=== PATIENT | male | born 1945 | race Caucasian/White ===

== ENCOUNTER 2018-08-24 07:10 | Inpatient (IN) | payer OTHER ==
[~2018-08-24] VITALS: Ht 175.3 cm; Wt 52.6 kg
--- OUTSIDE RECORDS SUMMARY | ~2018-08-24 | XMS | Clinical Summary ---
Demographics + + + | Address | [address] | | | [place] [address] | + + + | Home Phone | | + + + | Preferred Language | Unknown | + + + | Marital Status | | + + + | Rastafarian Affiliation | Unknown | + + + | Race | Unknown | + + + | Ethnic Group | Unknown | + + + Author + + + | Author | [facility] | + + + | Organization | [facility] | + + + | Address | Unknown | + + + | Phone | Unavailable | + + + Support + + +---------+ + | Name | Relationship | Address | Phone | + + +---------+ + | Brandee Salazar | ECON | Unknown | | + + +---------+ + | Message,Detailed | ECON | Unknown | | + + +---------+ + Care Team Providers + +------+ + | Care Map Compiler Name | Role | Phone | + +------+ + | Melecio Murillo MD | PP | | + +------+ + Allergies + + + + + + | Active Allergy | Reactions | Severity | Noted | Comments | | | | | Date | | + + + + + + | Codeine | Nausea and Vomiting, | Medium | 07/07/19 | | | | Rash | | 17 | | + + + + + + | Morphine | Nausea and Vomiting, | Medium | 07/07/19 | | | | Rash | | 17 | | + + + + + + Current Medications + + +-------+---------+------+------+-------+ | Prescription | Sig. | Disp. | Refills | Star | End | Statu | | | | | | t | Date | s | | | | | | Date | | | + + +-------+---------+------+------+-------+ | cloNIDine | Take 0.1 mg by mouth | | | | | Activ | | (CATAPRES) 0.1 MG | once. | | | | | e | | tablet | | | | | | | + + +-------+---------+------+------+-------+ | lisinopril | Take 2.5 mg by mouth | | | | | Activ | | (ZESTRIL) 2.5 MG | daily. | | | | | e | | tablet | | | | | | | + + +-------+---------+------+------+-------+ | aspirin 325 MG | Take 325 mg by mouth | | | | | Activ | | tablet | daily with | | | | | e | | | breakfast. | | | | | | + + +-------+---------+------+------+-------+ | atorvastatin | Take 40 mg by mouth | | | | | Activ | | (LIPITOR) 40 MG | nightly. | | | | | e | | tablet | | | | | | | + + +-------+---------+------+------+-------+ | fish oil omega-3 | Take 1 g by mouth | | | | | Activ | | fatty acids 1000 MG | daily. | | | | | e | | capsule | | | | | | | + + +-------+---------+------+------+-------+ Active Problems + + + | Problem | Noted Date | + + + | Chest pain, unspecified | 07/06/2016 | + + + | COPD (chronic obstructive pulmonary disease) | 07/06/2016 | + + + | Tobacco abuse | 07/06/2016 | + + + | Essential hypertension, benign | 07/06/2016 | + + + | Hyperlipidemia | 07/06/2016 | + + + Social History + +-------+ +--------+------+ | Tobacco Use | Types | Packs/Day | Years | Date | | | | | Used | | + +-------+ +--------+------+ | Current Every Day | | 0.5 | | | | Smoker | | | | | + +-------+ +--------+------+ + + | Tobacco Cessation: Counseling Given: Yes | + + + + +---------+ + | Alcohol Use | Drinks/We | oz/Week | Comments | | | ek | | | + + +---------+ + | No | | | | + + +---------+ + + + + | Sex Assigned at | Date Recorded | | | | + + + | Not on file | | + + + Last Filed Vital Signs + + + + | Vital Sign | Reading | Time Taken | + + + + | Blood Pressure | 151/67 | 07/07/2016 7:39 AM PDT | + + + + | Pulse | 50 | 07/07/2016 7:39 AM PDT | + + + + | Temperature | 36.7 C (98 F) | 07/07/2016 7:39 AM PDT | + + + + | Respiratory Rate | 18 | 07/07/2016 7:39 AM PDT | + + + + | Oxygen Saturation | 94% | 07/07/2016 7:39 AM PDT | + + + + | Inhaled Oxygen | - | - | | Concentration | | | + + + + | Weight | 74.8 kg (165 lb) | 07/07/2016 3:33 AM PDT | + + + + | Height | 172.7 cm (5' 8") | 07/07/2016 3:33 AM PDT | + + + + | Body Mass Index | 25.09 | 07/07/2016 3:33 AM PDT | + + + + Plan of Treatment + + + + + | Health Maintenance | Due Date | Last Done | Comments | + + + + + | Vaccine: | | | | | Dtap/Tdap/Td (1 - | 6 | | | | Tdap) | | | | + + + + + | Colon Cancer | | | | | Screening | 7 | | | | (Colonoscopy) | | | | + + + + + | Vaccine: Zoster (1 | | | | | of 2) | 7 | | | + + + + + | Vaccine: | | | | | Pneumococcal 65+ | 2 | | | | Low/Medium Risk (1 | | | | | of 2 - PCV13) | | | | + + + + + | Vaccine: Influenza | | | | | (Season Ended) | 9 | | | + + + + + Results Not on filefrom Last 3 Months Insurance + +--------+ +------+ + + | Payer | Benefi | Subscriber | Type | Phone | Address | | | t Plan | ID | | | | | | / | | | | | | | Group | | | | | + +--------+ +------+ + + | MEDICARE | MEDICA | [id number] | | | [address] | | | RE | | | | [place] [address] | | | PART A | | | | | | | ONLY | | | | | + +--------+ +------+ + + | VETERANS | VETER[employer] | [id number] | | [phone] | [employer]EE [employer] [id number] | | ADMINISTRATION | [place] | | | [phone] | | | ADMINI | | | | [place] | | | [place] | | | | [phone] | | | ON | | | | | + +--------+ +------+ + + + +--------+ +--------+ + + | Guarantor Name | Accoun | Relation to | Date | Phone | Billing Address | | | t Type | Patient | of | | | | | | | | | | + +--------+ +--------+ + + | ANUJ SALAZAR | Majora | Self | [birth year] Home: | [address] | | | ns | | [phone] | [phone] | [place] [address] | | | Admini | | | [phone] | | | | strati | | | | | | | on | | | | | + +--------+ +--------+ + +
--- OUTSIDE RECORDS SUMMARY | ~2018-08-24 | XMS | Clinical Summary ---
Demographics + + + | Address | [address] | | | [place] [address] | + + + | Home Phone | | + + + | Preferred Language | Unknown | + + + | Marital Status | | + + + | Jew Affiliation | Unknown | + + + | Race | Unknown | + + + | Ethnic Group | Unknown | + + + Author + + + | Author | [facility] | + + + | Organization | [facility] | + + + | Address [...] Team Providers + +------+ + | Care Petroleum Refinery Laborer Name | Role | Phone | + [...] + + | MEDICARE | MEDICA | [id number] | | | [address] | | | RE | | | | [place] [address] | | | PART A | | | | | | | ONLY | | | | | + +--------+ +------+ + + | VETERANS | VET[place] | [id number] | | [phone] | [employer] [address] | | ADMINISTRATION | [place] | | | [phone] | [phone] | | | ADMINI | | | | [place] | | | [place] | | | | [phone] | | | ON | | | [...] | Self | [birth year] | Home: | [address] | | | ns | | 1946 | [phone] | [place] [address] | | | Admini | | | [phone] | | | | strati | | | | | | | on | | | | | + +--------+ +--------+ + +
--- NOTE | 2018-08-24 12:00 | NUR ---
SPUTUM SAMPLE SENT TO LAB AT THIS TIME. SPUTUM WAS GREEN, CHAWLA IN COLOR.
--- NOTE | 2018-08-24 12:13 | NUR ---
PT ARRIVED VIA STREACHER, TRANSFERED SELF TO BED. O2 PLACED AT 3L'S NC. [facility] LOGIC CONTROLLER ASSEMBLER BILL COMPLETING ADMIT PROCESS. PT IS COOPERATIVE WITH HOSPITAL ROUTINE AT THIS TIME.
--- NOTE | 2018-08-24 12:27 | NUR ---
IV STARTED BY VICKY ARCINIEGA
--- NOTE | 2018-08-24 13:05 | NUR ---
PATIENT IS SITTING UP IN BED EATING TURKEY SANDWICH FOR LUNCH. PATIENT DENIES SOB. PATIENT HAS INCONSITENT PAIN IN RIGHT ABDOMINAL/RIB AREA, DECLINES PAIN MEDS. PATIENT RECENTLY QUIT SMOKING 2 WEEKS AGO, DECLINES NICOTINE PATCH. PATIENT HAS CALL LIGHT WITHIN REACH.
--- NOTE | 2018-08-24 13:19 | NUR ---
CALL TO [facility] TO LET THEM KNOW PT IS READY FOR ECHO. TECH IN AN EXAM AND WILL BE IN SOON POSSIBLE.
--- NOTE | 2018-08-24 14:08 | NUR ---
PATIENT GOT UP AND WALKED WITH CANE TO BATHROOM. VOIDED 700 MLS ORANGE COLORED URINE. PATIENT WALKED AROUND ROOM AND LOOKED OUTSIDE CONVERSING WITH NURSE FOR 10 MINUTES AND THEN SAT ON EDGE OF BED. PATIENT IS LOOKING OUT THE WINDOW WITH CALL LIGHT AT SIDE.
--- NOTE | 2018-08-24 16:30 | NUR ---
DR. PATTERSON NOTIFIED ABOUT PATIENT'S NEW AFLUTTER
[2018-08-24] MEDS ORDERED: LIPITOR40 MG PO (16:50)
[2018-08-24] MEDS ORDERED: METOPROLOL TART50 MG PO (16:50)
[2018-08-24] MEDS ORDERED: ZESTRIL5 MG PO (16:51)
[2018-08-24] MEDS ORDERED: COLACE100 MG PO (17:09)
[2018-08-24] MEDS ORDERED: TRAZODONE HCL100 MG PO (17:09)
[2018-08-24] MEDS ORDERED: HYDROCODON-ACE1 EA10 PO (17:10)
--- NOTE | 2018-08-24 17:10 | NUR ---
ASSISTED PATIENT TO THE BATHROOM. PATIENT VOIDED 200 MLS OF ORANGE URINE. PATIENT WALKED BACK TO SIT ON EDGE OF BED WITH CANE. PATIENT IS TALKING WITH FAMILY AND EATING DINNER. PATIENT TOLERATED ACTIVITY WELL AND HAS CALL LIGHT WITHIN REACH.
[2018-08-24] MEDS ORDERED: MELATONIN5 M2 PO (17:11)
[2018-08-24] MEDS ORDERED: LITE COAT ASPI325 MG PO (17:11)
[2018-08-24] MEDS ORDERED: MULTI-VITAMIN1 EAC1 PO (17:12)
--- NOTE | 2018-08-24 17:18 | NUR ---
Medications reconciled using pill bottles and interview with patient's . Per , patient gets confused regarding medications
--- NOTE | 2018-08-24 18:17 | NUR ---
PATIENT IS SITTING ON EDGE OF BED TALKING WITH FAMILY IN THE ROOM. PATIENT ORDERED A GRILLED CHEESE SANDWICH AND CHOCOLATTE PUDDING BUT DID NOT EAT ANY OF IT. PATIENT WAS STILL COMPLAINING OF PAIN IN RIGHT UPPER QUADRANT. 500MG TYLENOL GIVEN. PATIENT HAS CALL LIGHT WITHIN REACH.
--- NOTE | 2018-08-24 18:27 | NUR ---
THIS DIRECTOR OF CARDIAC CATH LAB AGREES WITH ALL OF STUDENT NURSE BILL FROM [facility] CHARTING.
--- NOTE | 2018-08-24 20:00 | NUR ---
AAOX4 AND RESPONDING APPROPRIATELY. SINUS RHYTHM, PERPHERIAL PULSES PALAPBLE +2, NO EDEMA. 2L NC, MIXED LUNGS SOUNDS SEE DOCUMENTATION, R/T IN ROOM TO GIVE PATRICK'D NEB, PRODUCTIVE COUGH WITH THICK GREEN SPUTUM. ABD NON DISTENDED, TENDER TO PALPATION, BOWEL TONES ACTIVE X4, REPORTS NAUSEA, C/O 5/10 SHARP PAIN, PROVIDER TO BE NOTIFIED. VOIDING QS. SKIN C/D/I. D5LR INFUSING AT 75 MLS/HR, IV SITE FLUSHED, PATENT, WNL. EDUCATION PROVIDED ON SAFETY AND FALL PREVENTION, UPDATED PLAN OF CARE, PT VERBALIZED UNDERSTANDING AND AGREEABLE.
--- NOTE | 2018-08-24 20:16 | NUR ---
PT STATES HE TAKES TRAZODONE AND MELATONIN FOR SLEEP. REVIEWED MED REC, ORDER FOR 200 MG TRAZODONE AND 5MG MELATONIN NOTED. DISCUSSED MEDICATION WITH DR. PATTERSON, PER PROVIDER, 200 MG TRAZODONE PO HS AND 5 MG MELATONIN PO HS TO BE GIVEN.
--- NOTE | 2018-08-24 21:00 | NUR ---
DR. PATTERSON AT BEDSIDE TO ASSESS PT AND UPDATE PLAN OF CARE.
--- NOTE | 2018-08-24 21:20 | NUR ---
CALL LIGHT ANSWERED, PT SBA WITH CANE, GAIT NOTED TO BE UNSTEADY AT TIMES. SAFETY AND FALL PREVENTION REINFORCED, PT VERBALIZED UNDERSTANDING.
--- NOTE | 2018-08-24 21:30 | NUR ---
EDUCCATION PROVIDED ON NEW MEDICATIONS AND POSSIBLE SIDE EFFECTS, ALL QUESTIONS ANSWERED, PT AGREEABLE TO PLAN AT THIS TIME. WILL CONTINUE TO MONITOR.
--- NOTE | 2018-08-24 22:31 | NUR ---
CALL LIGHT ANSWERED, PT REQUESTING TO TURN LIGHTS OFF AND REST. DENIES OTHER NEEDS. CALL LIGHT WITHIN REACH.
--- NOTE | 2018-08-24 22:41 | EKG ---
[facility] [address] [facility] [place] [address] Signed Atrial flutter with variable AV block Nonspecific ST abnormality Abnormal ECG No previous ECGs available Confirmed by KERI PATTERSON MD ([id number]) on 08/24/2018 10:41:39 PM Electronically Signed By: KERI PATTERSON MD 08/24/18 2241 PATIENT NAME: JAKE ZURITA Electrocardiogram DATE OF : 47 PHYSICIAN: KERI PATTERSON MD REPORT #: [id number] REPORT IS CONFIDENTIAL AND NOT TO BE RELEASED WITHOUT AUTHORIZATION
--- NOTE | 2018-08-24 22:42 | EKG ---
[facility] [address] [facility] [place] [address] Signed Sinus rhythm with occasional premature ventricular complexes Otherwise normal ECG When compared with ECG of 24-AUG-2018 07:16, (Unconfirmed) Sinus rhythm has replaced Atrial flutter Vent. rate has decreased BY [address] no longer elevated in Inferior leads ST elevation has replaced ST depression in Anterior leads Confirmed by KERI PATTERSON MD ([id number]) on 08/24/2018 10:41:57 PM Electronically Signed By: KERI PATTERSON MD 08/24/18 2242 PATIENT NAME: JAKE ZURITA Electrocardiogram DATE OF : 47 PHYSICIAN: KERI PATTERSON MD REPORT #: [id number] REPORT IS CONFIDENTIAL AND NOT TO BE RELEASED WITHOUT AUTHORIZATION
--- NOTE | 2018-08-24 23:32 | NUR ---
PT RESTING IN BED WITH EYES CLOSED, RESPIRATIONS EVEN AND UNLABORED, NO ACUTE DISTRESS NOTED.
--- NOTE | 2018-08-25 | NUR ---
PUMP ALARM ALARMING, RN IN ROOM TO ASSESS PT. PT NOTED TO HAVE PULLED OUT IV SITE, CATH INTACT. PT DISORIENTED UPON WAKING BUT REORIENTS SELF EASILY. BUL COARSE, BLL DIMINISHED, REMAINS ON 2L NC. DENIES PAIN. NO OTHER ACUTE CHANGES. CALL LIGHT WITHIN REACH.
--- NOTE | 2018-08-25 02:22 | NUR ---
PT RESTING WITH EYES CLOSED, REPIRATIONS EVEN AND UNLABORED, NO ACUTE DISTRESS NOTED. PT NPO SINCE MIDNIGHT, DRINKS AND FOOD REMOVED FROM BEDSIDE.
--- NOTE | 2018-08-25 04:00 | NUR ---
PT DISORIENTED UPON WAKING AND PULLING AT CORDS, REORIENTED. 1 PA WITH CANE TO RESTROOM, PT GAIT UNSTEADY AND C/O DIZZINESS. PT VOIDED 600 MLS. 1 PA BACK TO BED. REINFORCED SAFETY AND FALL PREVENTION. ADVISED TO USE BSC UNTIL GAIT IMPROVES, PT AGREEABLE. BUL CLEAR, BLL COARSE, ON 2L NC, PRODUCTIVE COUGH WITH THICK GREEN TO WHITE SPUTUM. NO OTHER ACUTE CHANGES. DENIES OTHER NEEDS. CALL LIGHT WITHIN REACH. BED ALARM ON.
--- NOTE | 2018-08-25 05:46 | NUR ---
CALL LIGHT ANSWERED, PT SBA TO BSC, C/O DIZZINESS AND UNSTEADY GAIT. REINFORCED FALL PREVENTION AND CALL LIGHT USE, VERBALIZED UNDERSTANDING. PT REQUESTING TO SIT ON BSC WITH BOOK FOR AWHILE.
--- NOTE | 2018-08-25 06:32 | NUR ---
PT RESTED FOR MOST OF SHIFT, AWAKENS EASILY, TRANSIENT MOMENTS OF DISORIENTATION UPON AWAKENING BUT REORIENTS SELF. PT REMAINED IN SINUS RHYTHM FOR SHIFT, BRADYCARDIA WITH HR 40-50'S AFTER 50 MG METOPROLOL, DIZZINESS WITH STANDING AND UNSTADY GAIT, FALL PRECAUTIONS IN PLACE. LUNGS SOUNDS VARIED THROUGHOUT SHIFT, BUL CLEAR WITH COARSE BLL, PRODUCTIVE COUGH CONTINUES, REMAINS ON 2L NC. C/O ABD PAIN, GI COCKTAIL GIVEN WITH NO ADDITIONAL COMPLAINTS OF PAIN, NPO AT MIDNIGHT, U/S THIS AM. VOIDING QS. SKIN C/D/I. D5LR CONTINUES AT 75 ML/HR.
--- NOTE | 2018-08-25 08:40 | NUR ---
IMAGING IS IN ROOM WITH PATIENT DOING ULTRASOUND. PATIENT DENIES PAIN OR SHORTNESS OF BREATH. PATIENT'S SATS DROPPED TO 87, O2 TURNED UP TO 3L NASAL CANNULA, SATS IMPROVED TO 90%.
--- NOTE | 2018-08-25 09:40 | NUR ---
PATIENT REQUESTED TO SIT ON EDGE OF BED TO PLAY ON PERSONAL COMPUTER. PATIENT DENIES ANY PAIN OR SOB. O2 SATURATIONS MAINTIANING AT 89% ON 3L VIA NASAL CANNULA. PATIENT DENIES DIZZINESS AND SITTING AT BEDSIDE. PATIENT KNOWS TO USE CALL LIGHT IF HE NEEDS TO STAND. BED ALARM IS ON.
--- NOTE | 2018-08-25 10:08 | NUR ---
PATIENT IS SITTING AT EDGE OF BED WITH FAMILY IN ROOM. PATIENT'S FAMILY HAD QUESTIONS REGARDING PATIENT'S CARE AND REASON FOR PATIENT BEING NPO. INFORMATION WAS PROVIDED VERBALLY AND FAMILY MEMBERS WERE RECEPTIVE. PATIENT DENIES ANY PAIN AND NO SOB. PATIENT O2 LEVEL DECREASED BACK TO 2L OXYGEN SATRATION LEVELS AT 95%.
--- NOTE | 2018-08-25 10:32 | NUR ---
PATIENT'S SUPPLEMENTAL OXYGEN TURNED DOWN TO 1L VIA DR. PATTERSON'S ORDERS. PATIENT'S O2 SATS ARE 95%. PATIENT IS SITTING AT THE BEDSIDE TALKING WITH FAMILY. FAMILY BROUGHT OATMEAL FOR PATIENT THAT WE PREPARED FOR HIM.
--- NOTE | 2018-08-25 11:00 | NUR ---
GAVE FACE TO FACE HAND OFF TO RECEIVING MED/BIOINFORMATICS COMPUTER SCIENTIST FABIOLA. PATIENT WAS TRANSFERED TO MED/SURG FLOOR WITH ALL PERSONAL BELONGINGS. PATIENT HAD NO FURTHER QUESTIONS. PATIENT'S FAMILY WAS WITH PATIENT WHILE BEING TRANSFERED TO THE MED/SURG FLOOR.
--- NOTE | 2018-08-25 11:54 | NUR ---
73YR OLD MAN [facility] CC[facility], ACCOMPANIED BY , DAUGHTER AND GRANDSON. PT IS ALERT AND ORIENTED, IN GOOD SPIRITS. ORIENTED TO ROOM AND CALL LIGHT. DENIES NEED TO VOID. RT HERE TO DO SCHEDULED NEB TREATMENT. CALL LIGHT IN [facility].
--- NOTE | 2018-08-25 13:10 | NUR ---
PT MOVED TO ROOM 111 FROM 115. PT BECAME INCREASINGLY ANXIOUS AND FORGETFUL, COULD NOT REMEMBER TO USE CALL LIGHT. FOR HIS SAFETY MOVED CLOSER TO NURSES STATION. HE LIKES ROOM. AGAIN ORIENTED TO ROOM AND CALL LIGHT.
--- NOTE | 2018-08-25 13:27 | NUR ---
RESTING ON BED, SCHEDULED IV ABX INFUSING. ASKED FOR SOMETHING FOR "STOMACHE".
--- NOTE | 2018-08-25 13:55 | NUR ---
GI COCKTAIL GIVEN TO PT. DECLINES ORDERING LUNCH YET. STATES HE IS NOT HUNGRY. RESTING QUIETLY NOW ON BED. WARM BLANKET FOR COMFORT.
--- NOTE | 2018-08-25 15:07 | NUR ---
STEEL INSPECTOR WAS IN TO TALK WITH PT, HAS COME BACK AND IS IN ROOM VISITING. PT WALKED LOOP AROUND NURSE STATION WITH SBA AND QUAD CANE FOR BALANCE. KEEPS SAYING HE WANT TO GO HOME. HAS BEEN USING CALL LIGHT FOR ASSISTANCE APPROPRIATELY.
--- NOTE | 2018-08-25 16:17 | NUR ---
HAS GONE HOME. PT DID ORDER DINNER. WALKED LENGTH OF HALLWAY X2. BALANCE AND ENDURANCE IS BETTER THIS AFTERNOON. MAINTAINING OXIMETER 92% ON RA. DENIES ANY NEEDS.
--- NOTE | 2018-08-25 17:39 | NUR ---
PT IS UP AND ABOUT ROOM INDEP. SPOT CHECKED ON RA AGAIN AT THIS TIME AND IS 91-92%. WARM BLANKET PT SAYS HE IS COLD IN ROOM. KEEPS LOOKING OUT THE WINDOW AND SAYS HE CAN SEE HIS HOUSE. WANTS TO GO HOME. ATE PIECE OF CAKE AND CUP OF TEA FOR DINNER. REFUSED ANY OF SANDWICH OR REPLACEMENT OFFERED. STATES HE JUST DOES NOT FEEL HUNGRY. NO RESP DISTESS. KEEPS ASKING WHY HE IS HERE. HAS WALKED IN HALLWAY SEVERAL TIMES AND TOLERATED WELL. ENCOURAGING PT TO USE CALL LIGHT IF HE NEEDS TO LEAVE HIS ROOM. SL PATENT TO RFA.
--- NOTE | 2018-08-25 18:30 | NUR ---
PATIENT REFUSED TO HAVE 1800 VITALS TAKEN, ASKED FOR EVERYONE TO LEAVE HIS ROOM OR HE WOULD THROW HIS LAPTOP AT THEM.
--- NOTE | 2018-08-25 19:26 | NUR ---
PATIENT REFUSED THE 1800 VITALS. TOLD CHARGE NURSE.
--- NOTE | 2018-08-25 19:42 | NUR ---
VITALS DONE AND CHARTED. PT NEEDS NOTHING MORE AT THIS TIME.
--- NOTE | 2018-08-25 20:00 | NUR ---
PATIENT INSISTANT THAT HE IS GOING HOME TONIGHT. VS TAKEN AND STABLE. PATIENT GIVEN EVENING MEDS AND KEEPS COMING OUT OF THE ROOM TO VISIT AT THE DESK. CALLED AND HE REQUESTED I CALL THE PATIENT'S AND TALK WITH HER TO TALK TO THE PATIENT. TALKED WITH THE PATIENT AND HE AGREED TO STAY UNTIL DC'D IN THE AM IF STILL READY FOR DC.
--- NOTE | 2018-08-25 22:33 | NUR ---
PATIENT JUST UP TO THE BATHROOM FROM BED INDEPENDENT TO VOID AND BACK TO BED.
--- NOTE | 2018-08-26 00:26 | NUR ---
PATIENT RESTING QUIETLY ON HIS RIGHT SIDE, RESPIRATIONS REGULAR AND EVEN AT 16, EYES CLOSED.
--- NOTE | 2018-08-26 02:10 | NUR ---
PATIENT CAME OUT OF HIS ROOM AND AND STARTED TO WONDER DOWN TO THE CCU. REDIRECTED PATIENT THAT IT WAS 2AM AND OTHER PATIENT'S WERE TRYING TO SLEEP AND THEY NEEDED THEIR PRIVACY, SO HE NEEDED TO STAY AROUND HIS ROOM. HE SAID HE WOULD DO THAT AND ASKED FOR A CUP OF COFFEE WHICH WAS GIVEN AND HE WENT BACK IN HIS ROOM.
--- NOTE | 2018-08-26 04:31 | NUR ---
PATIENT RESTING QUIETLY LAYING ON THE COUCH. RESPIRATINS REGULAR AND EVEN.
--- NOTE | 2018-08-26 05:06 | NUR ---
PATIENT WA INSISTING ON GOING HOME AT THE BEGINING OF THE SHIFT LAST NIGHT AND WANTED HIS EVENING MEDS BY 8PM AND FOR US TO CALL HIS TO COME GET HIM. CALLED AND THE MD HAD ME CALL AND HAVE THE PATIENT TALK WITH THE PT'S , WHO CONVINCED THE PATIENT TO STAY THE NIGHT. PATIENT GOT HIS EVENING MEDS AND WENT TO SLEEP UNTIL 2AM. PATIENT THEN GOT UP AND WONDERED DOWN THE MEJIA TO CCU. I REDIRECTED THE PATIENT BACK TO HIS ROOM AND GOT HIM A CUP OF COFFEE. HE LAYED ON THE SOFA UNTIL NOW AND CAME OUT AND GOT ONOTHER CUP OF COFFEE AND IS NOW JUST SITTING IN HIS ROOM.
--- NOTE | 2018-08-26 06:33 | NUR ---
VITALS AND I&OS DONE AND CHARTED. TABLE AND CALL LIGHT NEXT TO HIM IN THE CHAIR. GARBAGES EMPTIED. PT NEEDS NOTHING AT THIS TIME.
--- NOTE | 2018-08-26 07:15 | NUR ---
PATIENT SITTING UP IN CHAIR. LINENS CHANGED. CALL LIGHT WITHIN REACH. NO OTHER NEEDS AT THIS TIME
--- NOTE | 2018-08-26 07:32 | NUR ---
RECIEVED BEDSIDE REPORT FROM VICKY GUARDADO. PT IS AWAKE AND ALERT. PT IS PACKED AND DRESSED, WANDERING AROUND HIS ROOM AND OUT TO THE NURSES STATION. HE WOULD LIKE RN TO CALL HIS TO COME GET HIM YAMILKA. HE IS ANXIOUSLY WAITING FOR DISCHARGE.
--- NOTE | 2018-08-26 08:50 | NUR ---
WHEN STARTING THE LAST DOSE OF IV ABX, IV WENT BAD. DR PATTERSON AWARE.
--- NOTE | 2018-08-26 09:26 | NUR ---
PATIENT SITTING UP ON THE EDGE OF THE BED. IN ROOM. VITAL SIGNS AND I&O DONE. CALL LIGHT WITHIN REACH. NO OTHER NEEDS AT THIS TIME
[2018-08-26] MEDS ORDERED: CEFPODOXIME PR200 MG PO (10:19)
[2018-08-26] MEDS ORDERED: METOPROLOL TART50 MG PO (10:19)
[2018-08-26] MEDS ORDERED: ELIQUIS5 MG PO (10:20)
[2018-08-26] MEDS ORDERED: FAMOTIDINE20 MG PO (10:20)
[2018-08-26] MEDS ORDERED: PREDNISONE20 MG PO (10:21)
--- NOTE | 2018-08-26 10:51 | NUR ---
PT DRESSED, PACING IN RM. HIS IS IN RM-PLEASANT AND WORKING HARD TO HELP PT RELAX. HE IS READY TO GO, ASKED SEVERAL TIMES WHY HE CAN'T GO NOW. AND I EXPLAINED TO PT, HE IS FRIENDLY JUST READY. HAD GOOD VISIT, BOTH HAD SOME QUESTIONS ABOUT PRAYER, EXTENDED A BLESSING. WILL FOLLOW NEEDED
--- NOTE | 2018-08-26 11:46 | NUR ---
PT DISCHARGE TEACHING COMPLETE. DISCUSSED FOLLOW UP, WHEN TO CALL THE DR, FOLLOW UP, MEDICATIONS, AND IMPORTANCE OF KEEPING APPOINTMENTS. PT AND SPOUSE VERBALIZED UNDERSTANDING. DUE TO COST CONCERNS, ANTIBIOTIC RX WAS FILLED BY [facility] SO THAT PT WOULD HAVE MEDICATION. RN DISCUSSED IMPORTANCE OF FILLING OTHER MEDICATIONS. [facility]. PT AWARE.
== END 2018-08-26 11:27 | disposition home or self-care (01) | DRG 177 ==
LOC: ED 07:10 → CCU 07:13 → ED 07:13 → MS 11:22 → CCU 11:22 → MS 08-25 11:40
PROVIDERS: ADMIT Internal Medicine
DX: J15.6 Pneumonia due to other Gram-negative bacteria (principal); J96.01 Acute respiratory failure with hypoxia; J44.0 Chronic obstructive pulmonary disease with (acute) lower respiratory infection; J44.1 Chronic obstructive pulmonary disease with (acute) exacerbation; I48.92 Unspecified atrial flutter; E78.5 Hyperlipidemia, unspecified; I10 Essential (primary) hypertension; I48.0 Paroxysmal atrial fibrillation; R77.8 Other specified abnormalities of plasma proteins; E87.6 Hypokalemia; F10.21 Alcohol dependence, in remission; I71.4 Abdominal aortic aneurysm, without rupture; K29.90 Gastroduodenitis, unspecified, without bleeding; Z87.891 Personal history of nicotine dependence; Z88.5 Allergy status to narcotic agent; Z66 Do not resuscitate; Z79.82 Long term (current) use of aspirin; Z79.891 Long term (current) use of opiate analgesic; Z79.899 Other long term (current) drug therapy
CPT/HCPCS: 36415; 71045; 71260; 76700; 80048; 80053; 83735; 83880; 84439; 84443; 84484; 85025; 87070; 87077; 87184; 87185; 87205; 93005; 93010; 93306; 94640; 99285-25; 99406; J0456; J0696; J1650; J2405; J2930; J3475; J7050; J7120; Q9967

== ENCOUNTER 2019-11-27 08:31 | Emergency (ER) | payer OTHER ==
[~2019-11-27] VITALS: Ht 175.3 cm; Wt 52.6 kg
--- OUTSIDE RECORDS SUMMARY | ~2019-11-27 | XMS | Clinical Summary ---
Demographics + + + | Address | [address] | | | [place] [address] | + + + | Home Phone | | + + + | Preferred Language | Unknown | + + + | Marital Status | | + + + | Taoist Affiliation | Unknown | + + + | Race | Unknown | + + + | Ethnic Group | Unknown | + + + Author + + + | Author | [facility] | | | and [place] | + + + | Organization | [facility] | | | and [place] | + + + | Address | Unknown | + + + | Phone | Unavailable | + + + Support + + +---------+ + | Name | Relationship | Address | Phone | + + +---------+ + | Brandee Salazar | ECON | Unknown | | + + +---------+ + | Detailed Message | ECON | Unknown | Unavailable | + + +---------+ + Care Team Providers + +------+ + | Care Line Puller Name | Role | Phone | + +------+ + | Melecio Murillo MD | PCP | | + +------+ + Allergies Not on File Medications Not on file Active Problems Not on file Social History + +-------+ +--------+------+ | Tobacco Use | Types | Packs/Day | Years | Date | | | | | Used | | + +-------+ +--------+------+ | Current Every Day | | 0.5 | | | | Smoker | | | | | + +-------+ +--------+------+ + + + | Sex Assigned at | Date Recorded | | | | + + + | Not on file | | + + + Last Filed Vital Signs + + + + + | Vital Sign | Reading | Time Taken | Comments | + + + + + | Blood Pressure | 151/67 | 07/07/2016 7:42 AM | | | | | PDT | | + + + + + | Pulse | 50 | 07/07/2016 7:42 AM | | | | | PDT | | + + + + + | Temperature | 36.7 C (98 F) | 07/07/2016 7:42 AM | | | | | PDT | | + + + + + | Respiratory Rate | 18 | 07/07/2016 7:42 AM | | | | | PDT | | + + + + + | Oxygen Saturation | - | - | | + + + + + | Inhaled Oxygen | - | - | | | Concentration | | | | + + + + + | Weight | 74.8 kg (165 lb) | 07/07/2016 7:42 AM | | | | | PDT | | + + + + + | Height | 172.7 cm (5' 8") | 07/07/2016 7:42 AM | | | | | PDT | | + + + + + | Body Mass Index | 25.09 | 07/07/2016 7:42 AM | | | | | PDT | | + + + + + Plan of Treatment + + +-------+ + | Health Maintenance | Due Date | Last | Comments | | | | Done | | + + +-------+ + | Vaccine: | | | | | Dtap/Tdap/Td (1 - | 6 | | | | Tdap) | | | | + + +-------+ + | Vaccine: Zoster (1 | | | | | of 2) | 7 | | | + + +-------+ + | Vaccine: | | | | | Pneumococcal 65+ (1 | 2 | | | | of 1 - [id number]) | | | | + + +-------+ + | Vaccine: Influenza | | | | | (#1) | 0 | | | + + +-------+ + Results Not on filefrom Last 3 Months
--- OUTSIDE RECORDS SUMMARY | ~2019-11-27 | XMS | Encounter Summary ---
Demographics + + + | Address | [address] | | | [place] [address] | + + + | Home Phone | | + + + | Preferred Language | Unknown | + + + | Marital Status | | + + + | Moravian Affiliation | Unknown | + + + | Race | Unknown | + + + | Ethnic Group | Unknown | + + + Author + + + | Author | [facility] | | | and [place] | + + + | Organization | [facility] | | | and [place] [...] Team Providers + +------+ + | Care Kitchen Chef Name | Role | Phone | + +------+ + PCP | Unavailable | + +------+ + Encounter Details +--------+ + + + + | Date | Type | Department | Care Team | Description | +--------+ + + + + | 07/06/ | Hospital | [facility] | Stephanie, | Diagnosis unknown; | | 2017 - | Encounter | [facility] | MD Stephane [address] | Chest pain, | | | | CLINICAL DECISION | [address] | unspecified type; | | 07/07/ | | [address] | [place] [address] | Essential | | 2017 | | [place], [place] | [phone] | hypertension; Sinus | | | | [address] | | bradycardia | | | | [phone] | | | +--------+ + + + + Social History + +-------+ [...] on file | | + + + documented as of this encounter Last Filed Vital Signs + + + [...] | | + + + + + documented in this encounter Discharge Summaries Santhosh Ramirez MD - 07/07/2016 9:52 AM PDTFormatting of this note might be different fro m the original. Discharge Summaries by Santhosh Ramirez MD at 07/07/16 0952 Author: Santhosh Ramirez MD Service: (none) Author Type: Physician Filed: 07/09/16 1006 Date of Service: 07/07/16 0952 Status: Signed Thread Spinner: Santhosh Ramirez MD (Physician) [facility]: Hospitalist Discharge Summary Date of Admission: 07/06/2016 Date of Discharge: 07/07/2016 Discharge Provider: Santhosh Ramirez MD Treatment Team: Admitting Provider: Stephane Brown MD Discharge Diagnoses: Principal Problem: Chest pain, unspecified Active Problems: COPD (chronic obstructive pulmonary disease) (HCC) Tobacco abuse Essential hypertension, benign Hyperlipidemia Resolved Problems: * No resolved hospital problems. * Significant Diagnostic Studies: EKG showed sinus bradycardia. Chest x-ray did not show any acute findings. HOSPITAL COURSE: This is a 71-year-old male who presented as a transfer from [place] for evaluation o f his chest pain. Patient has been a former smoker. Vital Signs: BP 151/67 mmHg | Pulse 50 | Temp(Src) 98 F (36.7 C) (Oral) | Resp 18 | Ht 1.727 m (5' 8 ") | Wt 74.844 kg (165 lb) | BMI 25.09 kg/m2 | SpO2 94% Patient left the hospital even before I could see the patient. Hence, a proper physical exa m could not be done. He has a history of hypertension, hyperlipidemia and COPD. Given his ri sk factors, he was advised to have a Lexiscan done following morning with serial troponins t o be done over the night and being on telemetry. Unfortunately before Lexiscan could be done the following morning, he decided to leave AGAINST MEDICAL ADVICE. He left the hospital henny n before I could see him. Risks and benefits were mentioned to the patient which includes bu t not limited to from heart attack. Disposition: Home Condition: Unsure No discharge procedures on file. Follow up: No follow-up provider specified. Medication List Notice You have not been prescribed any medications. documented in this e ncounter Progress Notes Conversion Transaction, Provider Unknown - 07/07/2016 7:25 AM PDTFormatting of this note m ight be different from the original. Nurse Progress Note by Teri Block RN at 07/07/16724 Author: Teri Block RN Service: (none) Author Type: Registered Nurse Filed: 07/07/16932 Date of Service: 07/07/16724 Status: Signed Thread Spinner: Teri Block RN (Registered Nurse) Received report from lieutenant shift supervisor RN. Patient is leaving A. Ellie has gone through A MA paperwork with patient and is on the way to pick him up from [place]. onver alea Transaction, Provider Unknown - 07/07/2016 7:13 AM PDT Nurse Progress Note by Tammi Johansen RN at 07/07/16712 Author: Tammi Johansen RN Service: (none) Author Type: Registered Nurse Filed: 07/07/16713 Date of Service: 07/07/16712 Status: Signed Thread Spinner: Tammi Johansen RN (Registered Nurse) Patient at desk asking us to call his . This RN stated "Sure, what would you like us to call her? [place]?" Patient states he is in "no mood for jokes". Message given to Savanah otero RN. Ellie Loco RN - 07/07/2016 6:56 AM PDT Nurse Progress Note by Ellie Zelaya RN at 07/07/16 0656 Author: Ellie Zelaya RN Service: (none) Author Type: Registered Nurse Filed: 07/07/1657 Date of Service: 07/07/16655 Status: Signed Thread Spinner: Ellie Zelaya RN (Registered Nurse) Patient removed his tele box. Tele notified, and DR Sen notified that patient wants to leave AMA. No further orders received. Chart Correction History Action User Date/Time Reason Details Note Type Change Benja Ortiz 07/13/16 1529 Changed from H&P. onversion Tra nsaction, Provider Unknown - 07/07/2016 4:41 AM PDTFormatting of this note might be differe nt from the original. Pharmacy Note by Steph Bradley RPH at 07/07/16440 Author: Steph Bradley RPH Service: Pharmacy Author Type: Pharmacist Filed: 07/07/16440 Date of Service: 07/07/16440 Status: Signed Thread Spinner: Steph Bradley RPH (Pharmacist) Clinical Pharmacy Note: Renal Monitoring Height: 172.7 cm Weight: 74.8 kg CREATININE: 0.9 (07/07/16 0103) Estimated creatinine clearance - 73.9 mL/min Pharmacy dosing for renal function per Dr. Sen. Currently there are no medications needing to be adjusted. Pharmacy will continue to monito r for changes in medication orders and in renal function and adjust accordingly per protocol . Steph Bradley PharmD 07/07/2016 4:41 AM Ellie Loco RN - 07/07/2016 1:05 AM PDT Nurse Progress Note by Ellie Zelaya RN at 07/07/16 0105 Author: Ellie Zelaya RN Service: (none) Author Type: Registered Nurse Filed: 07/07/16 0131 Date of Service: 07/07/16104 Status: Signed Thread Spinner: Ellie Zelaya RN (Registered Nurse) Patient requested that his 20 G IV in the right AC be taken out because it bothers him. Juvencio fabian education was done regarding the importance of having an IV in place while in the hosp ital. I asked the patient f I can replaced it he declined and stated that he wants it out. T he IV was discontinued with intact canula in place. Patient also asked RN to call his zachary spaulding lives in [place] to come pick him up because he doesn't want to stay here anymore,and zachary ants to go home. Patient spoke with his who stated that she is unable to come pick him up at this time, but that she will pick him up in the morning. Patient agreed to continue guthrie ving his troponins drawn and vitals checked. He is sleeping at this time quietly. Will vannesa juliete checking patient. documented in this encounter H&P Notes Stephane Brown MD - 07/06/2016 7:45 PM PDTFormatting of this note might be diffe rent from the original. H&P by Stephane Brown MD at 07/06/161944 Author: Stephane Brown MD Service: Hospitalist Author Type: Physician Filed: 07/06/162027 Date of Service: 07/06/161944 Status: Signed Thread Spinner: Stephane Brown MD (Physician) [facility]: Hospitalist Admission History & Physical Date of Admission: 07/06/2016 Requesting Physician: Dr Leyva, Emergency Department Reason for Admission: Chest pain History Obtained From: patient CHIEF COMPLAINT: Chest pain HISTORY OF PRESENT ILLNESS The patient is 71 y.o. male with significant past medical history of hypertension, hyperlip idemia, COPD, tobacco abuse who presents with chest pain Patient with positive tobacco abuse 1/2 ppd for almost 50 years. Denies any history of DM, DC, or PAD. Positive cardiac family history. He refers that his symptoms started on [place] with chest discomfort. His pain is located in the right thoracic area, 5-6/10 of intensity, pressure like sensation, radiated to his righ t arm, that is sometimes trigger with physical activity and is relief by resting. His chest discomfort is associated with dyspnea. Also, over the weekend, he start having nausea, vomiting (mainly food and bile), and diarrh ea. Denies any hematemesis, hematochezia, or mucus in the stool. His GI symptoms improved by Wednesday. No history of lower extremity edema, PND, or orthopnea. Today, he was having chest discomfort with similar, above, characteristics. His called [facility] who recommended to go to the ED for further management. At [place], nitroglyc robert drip was given and, per patient, his symptoms worsen. TPN I was mild abnormal, reason w hy he was transfer to [facility] for further management. Here, at [facility], the patient has remained hemodynamically stable. EKG shows sinus bradycard ia without any acute ST changes. Repeated cardiac enzymes are negative. CxR is consistent wi th emphysematous change but no obvious consolidation. Patient is chest pain free. Patient will be admitted under the hospitalist service for further management. REVIEW OF SYSTEMS Review of Systems Constitutional: Positive for fatigue. Negative for fever and chills. HENT: Negative for postnasal drip and rhinorrhea. Respiratory: Positive for shortness of breath. Negative for apnea, cough, choking and wheez ing. Cardiovascular: Positive for chest pain. Negative for palpitations and leg swelling. Gastrointestinal: Positive for nausea, vomiting and diarrhea. Negative for abdominal pain a nd abdominal distention. Genitourinary: Negative for enuresis and difficulty urinating. Musculoskeletal: Negative for arthralgias. Skin: Negative for color change. Neurological: Negative for dizziness, syncope and headaches. Psychiatric/Behavioral: Negative for confusion and agitation. Past Medical History Diagnosis Date Hyperlipidemia Hypertension History reviewed. No pertinent past surgical history. No current facility-administered medications on file prior to encounter. No current outpatient prescriptions on file prior to encounter. Immunizations: Influenza: Pneumoccocal: Allergies Allergen Reactions Codeine Nausea and Vomiting and Rash Morphine Nausea and Vomiting and Rash (Not in a hospital admission) History reviewed. No pertinent family history. Social History Social History Marital Status: Spouse Name: N/A Number of Children: N/A Years of Education: N/A Occupational History Not on file. Social History Main Topics Smoking status: Current Every Day Smoker -- 0.50 packs/day Smokeless tobacco: Not on file Alcohol Use: No Drug Use: No Sexual Activity: Not on file Other Topics Concern Not on file Social History Narrative No narrative on file PHYSICAL EXAM Vital Signs: BP 112/53 mmHg | Pulse 58 | Temp(Src) 98.4 F (36.9 C) (Oral) | Resp 18 | SpO2 96% Physical Exam Constitutional: He is oriented to person, place, and time. He appears well-developed. HENT: Head: Normocephalic and atraumatic. Eyes: EOM are normal. Pupils are equal, round, and reactive to light. Neck: Neck supple. No JVD present. Cardiovascular: Normal rate and regular rhythm. Exam reveals no gallop and no friction rub . No murmur heard. Pulmonary/Chest: Effort normal. No respiratory distress. He has wheezes (mild). He has no r ales. He exhibits no tenderness. Abdomina/Gl: Soft. He exhibits no distension and no mass. There is no tenderness. There is no rebound and no guarding. Musculoskeletal: He exhibits no edema. Neurological: He is alert and oriented to person, place, and time. DATA Results Procedure Component Value Units Date/Time Cardiac Panel [[id number]] (Abnormal) Collected: 07/06/16 1838 WBC 9.04 K/uL Updated: 07/06/161 RBC 4.54 M/uL HGB 14.3 g/dL HCT 41.1 % MCV 90.5 fl MCH 31.4 pg MCHC 34.7 g/dL RDW SD 43.8 fl PLT 172 K/uL MPV 8.6 fl DIFF TYPE AUTOMATED NEUTROPHILS 41.76 % LYMPHOCYTES 37.20 % MONOCYTES 13.94 % EOSINOPHILS 5.72 % BASOPHILS 1.38 % NEUTROPHILS ABS 3.78 K/uL LYMPHOCYTES ABS 3.36 K/uL MONOCYTES ABS 1.26 (H) K/uL EOSINOPHILS ABS 0.52 (H) K/uL BASOPHILS ABS 0.13 (H) K/uL SODIUM 141 mmol/L POTASSIUM 3.9 mmol/L CHLORIDE 104 mmol/L CO2 30 mmol/L ANION GAP AGAP 11 mmol/L GLUCOSE 91 mg/dL BUN 14 mg/dL CREATININE 0.97 mg/dL BUN/CREAT 14 CALCIUM 8.5 mg/dL TOTAL PROTEIN 6.5 g/dL Albumin 3.3 g/dL GLOBULIN 3.2 g/dL A/G 1.0 TBIL 0.6 mg/dL ALK PHOS 102 U/L AST 36 U/L ALT 32 U/L EGFR >60 mL/min/1.73m2 CPK 188 U/L INR 1.1 APTT 42 (H) seconds MMB 3.8 (H) ng/mL CK-MB Index 2.0 Troponin I [[id number]] Collected: 07/06/161837 Specimen Information: Blood Updated: 07/06/161920 TROPONIN I 0.094 ng/mL PROBLEM LIST Principal Problem: Chest pain, unspecified Active Problems: COPD (chronic obstructive pulmonary disease) (HCC) Tobacco abuse Essential hypertension, benign Hyperlipidemia ASSESSMENT & PLAN Impression patient is 71 y.o. male with significant past medical history of hypertension, hyperlipidem ia, COPD, tobacco abuse who presents with chest pain for last 3 days. Currently chest pain f ree TPN I - 0.094 CxR - with no obvious consolidation EKG - sinus bradycardia without any acute ST changes Assessment -Chest pain, with cardiac characteristics. Will rule out cardiac etiologies, including ACS. If cardiac workup is negative, differential diagnosis include GERD, musculoskeletal -COPD. With no current signs of exacerbation -Hypertension -Hyperlipidemia -Hx of tobacco abuse and dependence Plan Admit to observation Telemetry Cardiac enzymes x 3 (moderate to high cardiac risk) EKG, A1C and lipid panel in the morning If cardiac enzymes are negative, will do a NM stress test NTG SL and morphine PRN for pain ASA, BBlocker and statin therapy Highly encourage tobacco cessation DVT GI Prophylaxis Code status - Full code Disposition: Observation Code Status: No Order Primary Care Physician: Melecio Brown MD 07/06/2016 documented i n this encounter ED Notes Conversion Transaction, Provider Unknown - 07/06/2016 9:16 PM PDTFormatting of this note m ight be different from the original. ED Notes by Harriet Salazar RN at 07/06/162115 Author: Harriet Salazar RN Service: (none) Author Type: Registered Nurse Filed: 07/06/162115 Date of Service: 07/06/162115 Status: Signed Thread Spinner: Harriet Salazar RN (Registered Nurse) Bedside report given to VICKY Kramer. Harriet Salazar RN 07/06/162115 onver alea Transaction, Provider Unknown - 07/06/2016 6:47 PM PDT ED Notes by Harriet Salazar RN at 07/06/161846 Author: Harriet Salazar RN Service: (none) Author Type: Registered Nurse Filed: 07/06/161848 Date of Service: 07/06/161846 Status: Signed Thread Spinner: Harriet Salazar RN (Registered Nurse) Pt sent here from [facility] with dx of unstable angina. Pt arrived to ER on 20mLs of Nitro and 25 units of heparin. Pt reports 3/10 chest pain. Chest pain began this morning and rela ryder he has had chest pain like this before. Harriet Salazar RN 07/06/161848 ime, Zaire Spears MD - 07/06/2016 6:36 PM PDT ED Provider Notes by Zaire Leyva MD at 07/06/161835 Author: Zaire Leyva MD Service: Emergency Department Author Type: Physician Filed: 07/06/162023 Date of Service: 07/06/161835 Status: Signed Thread Spinner: Zaire Leyva MD (Physician) [facility] Department of Emergency Medicine 6:39 PM 07/06/2016 History of Present Illness Patient Identification Anuj Salazar is a 71 y.o. male. Patient information was obtained from patient. History/Exam limitations: none. Patient presented to the Emergency Department by: [facility] Chief Complaint Chief Complaint Patient presents with Chest Pain Xfer from [facility] for ACS. Referral The patient presents to the emergency department with chief complaints of chest pain. Onset of symptoms was 10:00 AM, with a persistent course since that time. The symptoms are descri bed to be of moderate severity. Pt has no other complaints at this time. The patient describ es the quality and location of the symptoms as the following: chest pain. Pt reports he was seen in the [place] ED around noon for his chest pain. Pt reports he has had similar episo teagan of chest pain and his doctors report the pain is heart related. Pt reports hx of high bl ood pressure and high cholesterol. Pt reports he takes a full dose aspirin every morning. Pt reports he has been a smoker for 50 years. Care prior to arrival consisted of 25 units of heparin and 25 mL of nitro with minimal relief. Pt reports his chest pain appeared to worsen after medication, but is now resolving. PCP: Melecio Murillo Past Medical History Diagnosis Date Hyperlipidemia Hypertension History reviewed. No pertinent past surgical history. Prior to Admission medications Medication Sig Start Date End Date Taking? Authorizing Provider aspirin 325 MG tablet Take 325 mg by mouth daily with breakfast. Yes Historical Provider atorvastatin (LIPITOR) 40 MG tablet Take 40 mg by mouth nightly. Yes Historical Provider cloNIDine (CATAPRES) 0.1 MG tablet Take 0.1 mg by mouth once. Yes Historical Provider fish oil omega-3 fatty acids 1000 MG capsule Take 1 g by mouth daily. Yes Historical Prov ider lisinopril (ZESTRIL) 2.5 MG tablet Take 2.5 mg by mouth daily. Yes Historical Provider Allergies Allergen Reactions Codeine Nausea and Vomiting and Rash Morphine Nausea and Vomiting and Rash Social History Social History Marital Status: Spouse Name: N/A Number of Children: N/A Years of Education: N/A Occupational History Not on file. Social History Main Topics Smoking status: Current Every Day Smoker -- 0.50 packs/day Smokeless tobacco: Not on file Alcohol Use: No Drug Use: No Sexual Activity: Not on file Other Topics Concern Not on file Social History Narrative No narrative on file History reviewed. No pertinent family history. ROS Review of Systems Constitutional: Negative for: fever, chills or weight loss. HEENT: Negative for: head trauma, ear pain, sore throat or acute visual disturbance. Cardiovascular/Respiratory: Positive for: chest pain Negative for: syncope, shortness of breath or cough. Gastrointestinal: Negative for: abdominal pain, nausea, vomiting, diarrhea, or black or bl oody stools. Genitourinary: Negative for: dysuria or urinary problems. Musculoskeletal: Negative for: back pain Skin: Negative for: rash or lesions. Neuro: Negative for: headache, focal muscle weakness, seizure or acute neur ological problems. Physical Exam BP 145/64 mmHg | Pulse 65 | Temp(Src) 98.4 F (36.9 C) (Oral) | Resp 18 | SpO2 96% Vitals Interpretation: Hypertensive, otherwise normal Pulse Oximetry interpretation: Normal General: Alert, in no apparent distress Eyes: Normal inspection, pupils equal and round, non-icteric CVS: Rate and rhythm normal No murmurs, rubs or gallops Respiratory: Breath sounds normal bilaterally, no wheezing or crackles Abdomen: Soft, non-tender, non-distended No guarding or rebound Skin: Warm and dry No rash Musculoskeletal: Moves all extremities Neuro: No gross motosensory deficit ED Course Medical Decision Making and Emergency Department Course ED Department Course 6:39 PM. Patient presents with complaint of chest pain. [facility] Pt had slightly elevated troponin of .089 at [place]. Will order cardiac panel, troponin, and reevaluate the pt. 7:22 PM Pt reevaluation. Pt reports he was told he was being sent to [facility], but denies he was advised of plan for admission. Discussed with pt the risk factors involved if he declin es admission. Strongly advised pt admission is needed for further testing and monitoring as well as possible further intervention in the hemodialysis lab technician. Pt states he was not asked if he was in agreement with plan to come to [facility]. Discussed with pt that he has many risk factors (h ypertension, hyperlipidemia, and smoking) and elevated heart enzymes, and importance of furt her monitoring.. Pt agrees to plan for admission. Pt's family presents to the ED and are in agreement with plan for admission. Upon review of the patient s history, physical and the results of studies I believe that the patient warrants admission to the hospital for further evaluation and treatment. I have spoken with the patient regarding the need for admission to the hospital, and the patient h as expressed understanding of this. I will call and arrange for admission at this time. 7:34 PM Reviewed pt's labs. Troponin .094. APTT 42 and MMB 3.8. 7:45 PM Discussed the pt's case with Dr. Sen, hospitalist, who accepts the pt for admission. The patient has hypertension on presentation to emergency department. Causes of hypertensio n could include acute pain, anxiety, primary hypertension, uncontrolled hypertension, hypert ensive urgency, or hypertensive emergency. There are no signs of end organ damage at this ti ms (acute DC, aortic dissection, acute CVA, etc) and no indication for emergent reduction in the blood pressure in the emergency department. The patient will follow up with their prima physician for recheck of the blood pressure and outpatient management. Filed Vitals: 07/06/16 1829 07/06/16 1919 07/06/161946 BP: 145/64 166/71 112/53 Pulse: 65 59 58 Temp: 98.4 F (36.9 C) TempSrc: Oral Resp: 18 18 SpO2: 96% 95% 96% Medications - No data to display Records Reviewed Old medical records. Nursing notes. No previous [facility] ED visits available in [employer] for review. Labs & Radiology Results Laboratory Evaluation EKG from [place] Sinus bradycardia rate of [address]/T waves changes concerning for ischemia infarction. EKG @ 1905 Sinus bradycardia rate of [address] changes concerning for acute ischemia Normal QRS, intervals, and QTc EKG viewed independently and interpreted by me contemporaneously: Zaire Leyva MD Results Procedure Component Value Ref Range Date/Time Cardiac Panel [[id number]] (Abnormal) Collected: 07/06/161837 Order Status: Completed Updated: 07/06/161920 WBC 9.04 3.80 - 11.00 K/uL RBC 4.54 4.20 - 5.70 M/uL HGB 14.3 13.2 - 17.0 g/dL HCT 41.1 39.0 - 50.0 % MCV 90.5 80.0 - 100.0 fl MCH 31.4 27.0 - 34.0 pg MCHC 34.7 32.0 - 35.5 g/dL RDW SD 43.8 37 - 53 fl PLT 172 150 - 400 K/uL MPV 8.6 fl DIFF TYPE AUTOMATED NEUTROPHILS 41.76 % LYMPHOCYTES 37.20 % MONOCYTES 13.94 % EOSINOPHILS 5.72 % BASOPHILS 1.38 % NEUTROPHILS ABS 3.78 1.90 - 7.40 K/uL LYMPHOCYTES ABS 3.36 1.00 - 3.90 K/uL MONOCYTES ABS 1.26 (H) 0.00 - 0.80 K/uL EOSINOPHILS ABS 0.52 (H) 0.00 - 0.50 K/uL BASOPHILS ABS 0.13 (H) 0.00 - 0.10 K/uL SODIUM 141 135 - 145 mmol/L POTASSIUM 3.9 3.5 - 4.9 mmol/L CHLORIDE 104 99 - 109 mmol/L CO2 30 23 - 32 mmol/L ANION GAP AGAP 11 5 - 20 mmol/L GLUCOSE 91 65 - 99 mg/dL BUN 14 8 - 25 mg/dL CREATININE 0.97 0.70 - 1.30 mg/dL BUN/CREAT 14 CALCIUM 8.5 8.5 - 10.5 mg/dL TOTAL PROTEIN 6.5 6.3 - 8.2 g/dL Albumin 3.3 3.3 - 4.8 g/dL GLOBULIN 3.2 1.3 - 4.9 g/dL A/G 1.0 1.0 - 2.4 TBIL 0.6 0.1 - 1.5 mg/dL ALK PHOS 102 35 - 115 U/L AST 36 10 - 45 U/L ALT 32 10 - 65 U/L EGFR >60 >60 mL/min/1.73m2 CPK 188 55 - 400 U/L INR 1.1 APTT 42 (H) 23 - 32 seconds MMB 3.8 (H) 0.5 - 3.6 ng/mL CK-MB Index 2.0 Troponin I [[id number]] Collected: 07/06/16 1838 Order Status: Completed Specimen Information: Blood Updated: 07/06/161920 TROPONIN I 0.094 0.00 - 0.10 ng/mL Radiology and EKG Evaluation Imaging Results None Diagnosis & Disposition ED Diagnoses Final diagnoses Chest pain, unspecified type Essential hypertension Sinus bradycardia Disposition: ED Disposition Admit/Observation Bed request special needs: None Diagnosis?: chest pain Procedures Additional Documentation Procedures Attending Note: Documentation assistance provided by Elham Paul (Torin). Information kwesi rded by the scribe has been reviewed and validated by me. I agree with its contents. Signed by: Torin Isabel 07/06/2016, 7:46 PM MD Zaire Chiadez MD 07/06/162023 onversion Transact ion, Provider Unknown - 07/06/2016 6:27 PM PDTFormatting of this note might be different fr om the original. ED Notes by Jarrett Banda RN at 07/06/161826 Author: Jarrett Banda RN Service: (none) Author Type: Registered Nurse Filed: 07/06/161826 Date of Service: 07/06/161826 Status: Signed Thread Spinner: Jarrett Banda RN (Registered Nurse) Bed: 1101 Expected date: Expected time: Means of arrival: Comments: shiela onver alea Transaction, Provider Unknown - 07/06/2016 4:47 PM PDT ED Notes by Jarrett Banda RN at 07/06/161646 Author: Jarrett Banda RN Service: (none) Author Type: Registered Nurse Filed: 07/06/161646 Date of Service: 07/06/161646 Status: Signed Thread Spinner: Jarrett Banda RN (Registered Nurse) Pt is a transfer from [facility]. Pt had onset of CP and RUE pain and went to [facility]. Pt also has had n/v/d and fever x3 days. Trop 0.08. Hx HTN, CVA, hyperlipidemaia Jarrett Banda RN 07/06/161646 docume nted in this encounter Plan of Treatment Not on filedocumented as of this encounter Procedures + +--------+ + + + | Procedure Name | Priori | Date/Time | Associated Diagnosis | Comments | | | ty | | | | + +--------+ + + + | ECG 12 LEAD | Routin | 07/07/2016 | | Results for this | | | e | 6:06 AM | | procedure are in the | | | | PDT | | results section. | + +--------+ + + + | EXTERNAL LAB: CBC | Routin | 07/07/2016 | | Results for this | | | e | 1:03 AM | | procedure are in the | | | | PDT | | results section. | + +--------+ + + + | LIPID PANEL | Routin | 07/07/2016 | | Results for this | | | e | 1:03 AM | | procedure are in the | | | | PDT | | results section. | + +--------+ + + + | TROPONIN I | Routin | 07/07/2016 | | Results for this | | | e | 1:03 AM | | procedure are in the | | | | PDT | | results section. | + +--------+ + + + | CK-MB | Routin | 07/07/2016 | | Results for this | | | e | 1:03 AM | | procedure are in the | | | | PDT | | results section. | + +--------+ + + + | PHOSPHORUS | Routin | 07/07/2016 | | Results for this | | | e | 1:03 AM | | procedure are in the | | | | PDT | | results section. | + +--------+ + + + | MAGNESIUM | Routin | 07/07/2016 | | Results for this | | | e | 1:03 AM | | procedure are in the | | | | PDT | | results section. | + +--------+ + + + | CK TOTAL | Routin | 07/07/2016 | | Results for this | | | e | 1:03 AM | | procedure are in the | | | | PDT | | results section. | + +--------+ + + + | BILIRUBIN, DIRECT | Routin | 07/07/2016 | | Results for this | | | e | 1:03 AM | | procedure are in the | | | | PDT | | results section. | + +--------+ + + + | COMPREHENSIVE | Routin | 07/07/2016 | | Results for this | | METABOLIC PANEL | e | 1:03 AM | | procedure are in the | | | | PDT | | results section. | + +--------+ + + + | TROPONIN I | Routin | 07/06/2016 | | Results for this | | | e | 9:26 PM | | procedure are in the | | | | PDT | | results section. | + +--------+ + + + | CK-MB | Routin | 07/06/2016 | | Results for this | | | e | 9:26 PM | | procedure are in the | | | | PDT | | results section. | + +--------+ + + + | CK TOTAL | Routin | 07/06/2016 | | Results for this | | | e | 9:26 PM | | procedure are in the | | | | PDT | | results section. | + +--------+ + + + | ECG 12 LEAD | Routin | 07/06/2016 | | Results for this | | | e | 7:05 PM | | procedure are in the | | | | PDT | | results section. | + +--------+ + + + | HISTORICAL LAB PANEL | Routin | 07/06/2016 | | Results for this | | RESULT | e | 6:38 PM | | procedure are in the | | | | PDT | | results section. | + +--------+ + + + | TROPONIN I | Routin | 07/06/2016 | | Results for this | | | e | 6:38 PM | | procedure are in the | | | | PDT | | results section. | + +--------+ + + + | XR CHEST 1 VIEW | Routin | 07/06/2016 | | Results for this | | | e | 4:07 PM | | procedure are in the | | | | PDT | | results section. | + +--------+ + + + documented in this encounter Results ECG 12 lead (07/07/2016 6:06 AM PDT) + + + + + + | Component | Value | Ref Range | Performed | Pathologist | | | | | At | Signature | + + + + + + | DIAGNOSIS: | Sinus bradycardia with | | EXTERNAL | | | | sinus | | LAB | | | | arrhythmiaOtherwise | | | | | | normal ECGWhen compared | | | | | | with ECG of 06-JUL-2016 | | | | | | 19:05,No significant | | | | | | change was | | | | | | foundConfirmed by | | | | | | ALAV ALVARADO ([id number]) on | | | | | | 07/07/2016 4:23:47 PM | | | | + + + + + + + + | Specimen | + + | | + + + + + | Narrative | Performed At | + + + | Historically converted procedure from [facility] environment | EXTERNAL LAB | + + + + +---------+ + + | Performing | Address | City/State/Zipcode | Phone Number | | Organization | | | | + +---------+ + + | EXTERNAL LAB | | | | + +---------+ + + CK-MB (07/07/2016 1:03 AM PDT) + + + + + -+ | Component | Value | Ref Range | Performed | Pathologist | | | | | At | Signature | + + + + + -+ | CK-MB | 3.1Comment: Testing | 0.5 - 3.6 ng/mL | EXTERNAL | | | | performed at [facility];[address] | | [address] | | | [address];[place], [place] | | | | | | [address] | | | | + + + + + -+ | CK-MB Index | 1.9Comment: CK INDEX | | EXTERNAL | | | | INTERPRETATION: | | LAB | | | | MMB ng/mL | | | | | | | | | | | |CK INDEX INTERPRETATION: | | | | | | MMB ng/mL | | | | | | | | | | + + + + + -+ + + | Specimen | + + | | + + + +---------+ + + | Performing | Address | City/State/Zipcode | Phone Number | | Organization | | | | + +---------+ + + | EXTERNAL LAB | | | | + +---------+ + + Troponin I (07/07/2016 1:03 AM PDT) + + + + + + | Component | Value | Ref Range | Performed | Pathologist | | | | | At | Signature | + + + + + + | Troponin I, | 0.082Comment: 0.00 to | 0.00 - 0.10 | EXTERNAL | | | Qual | 0.10 CONSISTENT WITH | ng/mL | LAB | | | | NORMAL POPULATION0.11 to | | | | | | 0.60 CONSISTENT WITH | | | | | | INCREASED RISK FOR | | | | | | ADVERSE OUTCOMES> 0.60 | | | | | | CONSISTENT | | | | | | WITH WHO CRITERIA FOR | | | | | | ACUTE DC Testing | | | | | | performed at [facility];[address] | | | | | | [address];[place], [place] | | | | | | [address] | | | | + + + + + + + + | Specimen | + + | Blood specimen | | (specimen) | + + + +---------+ + + | Performing | Address | City/State/Zipcode | Phone Number | | Organization | | | | + +---------+ + + | EXTERNAL LAB | | | | + +---------+ + + External Lab: CBC (07/07/2016 1:03 AM PDT) + + + + + + | Component | Value | Ref Range | Performed | Pathologist | | | | | At | Signature | + + + + + + | WBC | 8.68Comment: Testing | 3.80 - 11.00 | EXTERNAL | | | | performed at [facility], [address] | K/uL | LAB | | | | [address], | | | | | | [place] [address] | | | | + + + + + + | Non- | 4.66Comment: Testing | 4.20 - 5.70 | EXTERNAL | | | Red Blood | performed at [facility], [address] | M/uL | LAB | | | Cells | [address], | | | | | Counted | [place] [address] | | | | + + + + + + | Hemoglobin | 14.3Comment: Testing | 13.2 - 17.0 | EXTERNAL | | | | performed at [facility], [address] | g/dL | LAB | | | | [address], | | | | | | [place] [address] | | | | + + + + + + | Hematocrit, | 42.6Comment: Testing | 39.0 - 50.0 % | EXTERNAL | | | POC | performed at [facility], [address] | | LAB | | | | [address], | | | | | | [place] [address] | | | | + + + + + + | MCV | 91.4Comment: Testing | 80.0 - 100.0 fl | EXTERNAL | | | | performed at [facility], [address] | | LAB | | | | [address], | | | | | | [place] [address] | | | | + + + + + + | MCH | 30.7Comment: Testing | 27.0 - 34.0 pg | EXTERNAL | | | | performed at [facility], [address] | | LAB | | | | [address], | | | | | | [place] [address] | | | | + + + + + + | MCHC | 33.6Comment: Testing | 32.0 - 35.5 | EXTERNAL | | | | performed at [facility], [address] | g/dL | LAB | | | | [address], | | | | | | [place] [address] | | | | + + + + + + | RDW-CV | 43.8Comment: Testing | 37 - 53 fl | EXTERNAL | | | | performed at [facility], [address] | | LAB | | | | [address], | | | | | | [place] [address] | | | | + + + + + + | Platelet | 181Comment: Testing | 150 - 400 K/uL | EXTERNAL | | | Count | performed at [facility], [address] | | LAB | | | Plasma | [address], | | | | | | [place] [address] | | | | + + + + + + | MPV | 8.8Comment: Testing | fl | EXTERNAL | | | | performed at [facility], [address] | | LAB | | | | [address], | | | | | | [place] [address] | | | | + + + + + + | Differentia | AUTOMATEDComment: | | EXTERNAL | | | l Type | Testing performed at | | LAB | | | | [facility], [address] | | | | | | [place] | | | | | | [address] | | | | + + + + + + | % Segmented | 43.51Comment: Testing | % | EXTERNAL | | | | performed at [facility], [address] | | LAB | | | Neutrophils | [address], | | | | | | [place] [address] | | | | + + + + + + | % | 33.42Comment: Testing | % | EXTERNAL | | | Lymphocytes | performed at [facility], [address] | | LAB | | | | [address], | | | | | | [place] [address] | | | | + + + + + + | % Monocytes | 16.79Comment: Testing | % | EXTERNAL | | | | performed at [facility], [address] | | LAB | | | | [address], | | | | | | [place] [address] | | | | + + + + + + | % | 5.32Comment: Testing | % | EXTERNAL | | | Eosinophils | performed at [facility], [address] | | LAB | | | | [address], | | | | | | [place] [address] | | | | + + + + + + | % Basophils | 0.96Comment: Testing | % | EXTERNAL | | | | performed at [facility], [address] | | LAB | | | | [address], | | | | | | [place] [address] | | | | + + + + + + | Absolute | 3.78Comment: Testing | 1.90 - 7.40 | EXTERNAL | | | Segmented | performed at [facility], [address] | K/uL | LAB | | | Neutrophils | [address], | | | | | | [place] [address] | | | | + + + + + + | Absolute | 2.90Comment: Testing | 1.00 - 3.90 | EXTERNAL | | | Lymphocytes | performed at [facility], [address] | K/u[address] | LAB | | | | [address], | | | | | | [place], [place] [address] | | | | + + + + + + | Absolute | 1.46 (H)Comment: Testing | 0.00 - 0.80 | EXTERNAL | | | Monocytes | performed at [facility], [address] | [address] | LAB | | | | [address], | | | | | | [place] [address] | | | | + + + + + + | Absolute | 0.46Comment: Testing | 0.00 - 0.50 | EXTERNAL | | | Eosinophils | performed at [facility], [address] | K/[address] | LAB | | | | [address], | | | | | | [place] [address] | | | | + + + + + + | Absolute | 0.08Comment: Testing | 0.00 - 0.10 | EXTERNAL | | | Basophils | performed at [facility], [address] | K/u[address] | LAB | | | | [address], | | | | | | [place] [address] | | | | + + + + + + + + | Specimen | + + | Blood specimen | | (specimen) | + + + +---------+ + + | Performing | Address | City/State/Zipcode | Phone Number | | Organization | | | | + +---------+ + + | EXTERNAL LAB | | | | + +---------+ + + Phosphorus (07/07/2016 1:03 AM PDT) + + + + + + | Component | Value | Ref Range | Performed | Pathologist | | | | | At | Signature | + + + + + + | PHOSPHORUS | 2.9Comment: Testing | 2.3 - 4.8 mg/dL | EXTERNAL | | | | performed at [facility], [address] | | LAB | | | | [address], | | | | | | [place] [address] | | | | + + + + + + + + | Specimen | + + | Blood specimen | | (specimen) | + + + +---------+ + + | Performing | Address | City/State/Zipcode | Phone Number | | Organization | | | | + +---------+ + + | EXTERNAL LAB | | | | + +---------+ + + Magnesium (07/07/2016 1:03 AM PDT) + + + + + + | Component | Value | Ref Range | Performed | Pathologist | | | | | At | Signature | + + + + + + | Magnesium | 2.2Comment: Testing | 1.7 - 2.4 mg/dL | EXTERNAL | | | | performed at [facility], [address] | | LAB | | | | [address], | | | | | | [place] [address] | | | | + + + + + + + + | Specimen | + + | Blood specimen | | (specimen) | + + + +---------+ + + | Performing | Address | City/State/Zipcode | Phone Number | | Organization | | | | + +---------+ + + | EXTERNAL LAB | | | | + +---------+ + + CK Total (07/07/2016 1:03 AM PDT) + + + + + + | Component | Value | Ref Range | Performed | Pathologist | | | | | At | Signature | + + + + + + | CK, Total | 164Comment: SLT | 55 - 400 U/L | EXTERNAL | | | | HEMOLYSISTesting | | LAB | | | | performed at [facility];[address] | | [address];[place], [place] | | | | | | [address] | | | | + + + + + + + + | Specimen | + + | Blood specimen | | (specimen) | + + + +---------+ + + | Performing | Address | City/State/Zipcode | Phone Number | | Organization | | | | + +---------+ + + | EXTERNAL LAB | | | | + +---------+ + + Bilirubin, Direct (07/07/2016 1:03 AM PDT) + + + + + + | Component | Value | Ref Range | Performed | Pathologist | | | | | At | Signature | + + + + + + | Bilirubin | <0.1Comment: Testing | 0.0 - 0.3 mg/dL | EXTERNAL | | | Direct | performed at [facility], [address] | | LAB | | | | [address] [facility], | | | | | | [place] [address] | | | | + + + + + + + + | Specimen | + + | | + + + +---------+ + + | Performing | Address | City/State/Zipcode | Phone Number | | Organization | | | | + +---------+ + + | EXTERNAL LAB | | | | + +---------+ + + Lipid Panel (07/07/2016 1:03 AM PDT) + + + + + + | Component | Value | Ref Range | Performed | Pathologist | | | | | At | Signature | + + + + + + | Cholesterol | 87Comment: Testing | mg/dL | EXTERNAL | | | | performed at [facility], [address] | | LAB | | | | [address], | | | | | | [place] [address] | | | | + + + + + + | Triglycerid | 60Comment: Testing | mg/dL | EXTERNAL | | | es | performed at [facility], [address] | | LAB | | | | [address], | | | | | | [place] [address] | | | | + + + + + + | HDL | 30 (L)Comment: Testing | mg/dL | EXTERNAL | | | | performed at [facility], [address] | | LAB | | | | [address], | | | | | | [place] [address] | | | | + + + + + + | LDL, | 45Comment: Testing | mg/dL | EXTERNAL | | | Calculated | performed at [facility], [address] | | LAB | | | | [address], | | | | | | [place] [address] | | | | + + + + + + + + | Specimen | + + | Blood specimen | | (specimen) | + + + +---------+ + + | Performing | Address | City/State/Zipcode | Phone Number | | Organization | | | | + +---------+ + + | EXTERNAL LAB | | | | + +---------+ + + Comprehensive Metabolic Panel (07/07/2016 1:03 AM PDT) + + + + + + | Component | Value | Ref Range | Performed | Pathologist | | | | | At | Signature | + + + + + + | Na | 142Comment: Testing | 135 - 145 | EXTERNAL | | | | performed at [facility], [address] | mmol/L | LAB | | | | [address], | | | | | | [place] [address] | | | | + + + + + + | K | 3.5Comment: Testing | 3.5 - 4.9 | EXTERNAL | | | | performed at [facility], [address] | mmol/L | LAB | | | | [address], | | | | | | [place] [address] | | | | + + + + + + | Cl | 106Comment: Testing | 99 - 109 mmol/L | EXTERNAL | | | | performed at [facility], [address] | | LAB | | | | [address], | | | | | | [place] [address] | | | | + + + + + + | CO2 | 29Comment: Testing | 23 - 32 mmol/L | EXTERNAL | | | | performed at [facility], [address] | | LAB | | | | [address], | | | | | | [place] [address] | | | | + + + + + + | Anion Gap | 11Comment: Testing | 5 - 20 mmol/L | EXTERNAL | | | | performed at [facility], [address] | | LAB | | | | [address], | | | | | | [place], [place] [address] | | | | + + + + + + | Glucose, | 99Comment: Testing | 65 - 99 mg/dL | EXTERNAL | | | Fasting | performed at [facility], [address] | | LAB | | | | [address], | | | | | | [place], [place] [address] | | | | + + + + + + | BUN | 14Comment: Testing | 8 - 25 mg/dL | EXTERNAL | | | | performed at [facility], [address] | | LAB | | | | [address], | | | | | | [place] [address] | | | | + + + + + + | Creatinine | 0.9Comment: Testing | 0.70 - 1.30 | EXTERNAL | | | | performed at [facility], [address] | mg/dL | LAB | | | | [address], | | | | | | [place] [address] | | | | + + + + + + | BUN/Creatin | 16Comment: Testing | | EXTERNAL | | | ine Ratio | performed at [facility], [address] | | LAB | | | | [address], | | | | | | [place] [address] | | | | + + + + + + | Calcium | 8.5Comment: Testing | 8.5 - 10.5 | EXTERNAL | | | | performed at [facility], [address] | mg/dL | LAB | | | | [address], | | | | | | [place] [address] | | | | + + + + + + | Protein, | 6.3Comment: Testing | 6.3 - 8.2 g/dL | EXTERNAL | | | Total | performed at [facility], [address] | | LAB | | | | [address], | | | | | | [place] [address] | | | | + + + + + + | Albumin | 3.1 (L)Comment: Testing | 3.3 - 4.8 g/dL | EXTERNAL | | | | performed at [facility], [address] | | LAB | | | | [address], | | | | | | [place] [address] | | | | + + + + + + | Globulin | 3.2Comment: Testing | 1.3 - 4.9 g/dL | EXTERNAL | | | | performed at [facility], [address] | | LAB | | | | [address], | | | | | | [place] [address] | | | | + + + + + + | A/G Ratio | 1.0Comment: Testing | 1.0 - 2.4 | EXTERNAL | | | | performed at [facility], [address] | | LAB | | | | [address], | | | | | | [place] [address] | | | | + + + + + + | Bilirubin | 0.4Comment: Testing | 0.1 - 1.5 mg/dL | EXTERNAL | | | Total | performed at [facility], [address] | | LAB | | | | [address], | | | | | | [place] [address] | | | | + + + + + + | ALP, | 92Comment: Testing | 35 - 115 U/L | EXTERNAL | | | External | performed at [facility], [address] | | LAB | | | | [address], | | | | | | [place] [address] | | | | + + + + + + | AST | 31Comment: Testing | 10 - 45 U/L | EXTERNAL | | | | performed at [facility], [address] | | LAB | | | | [address], | | | | | | [place] [address] | | | | + + + + + + | ALT | 30Comment: Testing | 10 - 65 U/L | EXTERNAL | | | | performed at [facility], [address] | | LAB | | | | [address] [facility], | | | | | | [place] [address] | | | | + + + + + + | Estimated | >60Comment: GFR <60: | mL/min/1.73m2 | EXTERNAL | | | GFR | CHRONIC KIDNEY DISEASE, | | LAB | | | | IF FOUND OVER A 3 MONTH | | | | | | PERIOD.GFR <15: KIDNEY | | | | | | FAILURE.FOR | | | | | | AMERICANS, MULTIPLY THE | | | | | | CALCULATED GFR BY | | | | | | 1.210.Testing performed | | | | | | at [facility], [address] | | | | | | [address], | | | | | | [place] [address] | | | | + + + + + + + + | Specimen | + + | Blood specimen | | (specimen) | + + + +---------+ + + | Performing | Address | City/State/Zipcode | Phone Number | | Organization | | | | + +---------+ + + | EXTERNAL LAB | | | | + +---------+ + + CK-MB (07/06/2016 9:26 PM PDT) + + + + + -+ | Component | Value | Ref Range | Performed | Pathologist | | | | | At | Signature | + + + + + -+ | CK-MB | 3.2Comment: Testing | 0.5 - 3.6 ng/mL | EXTERNAL | | | | performed at [facility];[address] | | LAB | | | | [address];[place] | | | | | | [address] | | | | + + + + + -+ | CK-MB Index | 2.0Comment: CK INDEX | | EXTERNAL | | | | INTERPRETATION: | | LAB | | | | MMB ng/mL | | | | | | | | | | | |CK INDEX INTERPRETATION: | | | | | | MMB ng/mL | | | | | | | | | | + + + + + -+ + + | Specimen | + + | | + + + +---------+ + + | Performing | Address | City/State/Zipcode | Phone Number | | Organization | | | | + +---------+ + + | EXTERNAL LAB | | | | + +---------+ + + Troponin I (07/06/2016 9:26 PM PDT) + + + + + + | Component | Value | Ref Range | Performed | Pathologist | | | | | At | Signature | + + + + + + | Troponin I, | 0.094Comment: 0.00 to | 0.00 - 0.10 | EXTERNAL | | | Qual | 0.10 CONSISTENT WITH | ng/mL | LAB | | | | NORMAL POPULATION0.11 to | | | | | | 0.60 CONSISTENT WITH | | | | | | INCREASED RISK FOR | | | | | | ADVERSE OUTCOMES> 0.60 | | | | | | CONSISTENT | | | | | | WITH WHO CRITERIA FOR | | | | | | ACUTE DC Testing | | | | | | performed at [facility] | | | | | | [address];[place], [place] | | | | | | [address] | | | | + + + + + + + + | Specimen | + + | Blood specimen | | (specimen) | + + + +---------+ + + | Performing | Address | City/State/Zipcode | Phone Number | | Organization | | | | + +---------+ + + | EXTERNAL LAB | | | | + +---------+ + + CK Total (07/06/2016 9:26 PM PDT) + + + + + + | Component | Value | Ref Range | Performed | Pathologist | | | | | At | Signature | + + + + + + | CK, Total | 162Comment: Testing | 55 - 400 U/L | EXTERNAL | | | | performed at [facility];[address] | | LAB | | | | [address];[place] | | | | | | [address] | | | | + + + + + + + + | Specimen | + + | Blood specimen | | (specimen) | + + + +---------+ + + | Performing | Address | City/State/Zipcode | Phone Number | | Organization | | | | + +---------+ + + | EXTERNAL LAB | | | | + +---------+ + + ECG 12 lead (07/06/2016 7:05 PM PDT) + + + + + + | Component | Value | Ref Range | Performed | Pathologist | | | | | At | Signature | + + + + + + | DIAGNOSIS: | Sinus | | EXTERNAL | | | | bradycardiaOtherwise | | LAB | | | | normal ECGNo previous | | | | | | ECGs availableThis ECG | | | | | | contains Unconfirmed | | | | | | Interpretation | | | | | | Statements. See ED | | | | | | Record for Physician | | | | | | Interpretation. | | | | | | Confirmed by MUSE READ | | | | | | ONLY, -COMPUTER ([id number]), | | | | | | telegraph editor Phani Benjamin | | | | | | Farhad ([id number]) on 07/07/2016 | | | | | | 5:16:12 AM | | | | + + + + + + + + | Specimen | + + | | + + + + + | Narrative | Performed At | + + + | Historically converted procedure from [facility] environment | EXTERNAL LAB | + + + + +---------+ + + | Performing | Address | City/State/Zipcode | Phone Number | | Organization | | | | + +---------+ + + | EXTERNAL LAB | | | | + +---------+ + + HISTORICAL LAB PANEL RESULT (07/06/2016 6:38 PM PDT) + + + + + -+ | Component | Value | Ref Range | Performed | Pathologist | | | | | At | Signature | + + + + + -+ | WBC | 9.04Comment: Testing | 3.80 - 11.00 | EXTERNAL | | | | performed at [facility];[address] | [address] | LAB | | | | [address];[place] | | | | | | [address] | | | | + + + + + -+ | Non- | 4.54Comment: Testing | 4.20 - 5.70 | EXTERNAL | | | Red Blood | performed at [facility];[address] | M/[address]L | LAB | | | Cells | [address];[place] | | | | | Counted | [id number] | | | | + + + + + -+ | Hemoglobin | 14.3Comment: Testing | 13.2 - 17.0 | EXTERNAL | | | | performed at [facility];[address] | g/dL | LAB | | | | [address];[place] | | | | | | [address] | | | | + + + + + -+ | Hematocrit, | 41.1Comment: Testing | 39.0 - 50.0 % | EXTERNAL | | | POC | performed at [facility];[address] | | LAB | | | | [address];[place] | | | | | | [address] | | | | + + + + + -+ | MCV | 90.5Comment: Testing | 80.0 - 100.0 fl | EXTERNAL | | | | performed at [facility];[address] | | LAB | | | | [address];[place] | | | | | | [address] | | | | + + + + + -+ | MCH | 31.4Comment: Testing | 27.0 - 34.0 pg | EXTERNAL | | | | performed at [facility];[address] | | LAB | | | | [address];[place] | | | | | | [address] | | | | + + + + + -+ | MCHC | 34.7Comment: Testing | 32.0 - 35.5 | EXTERNAL | | | | performed at [facility];888 | g/dL | LAB | | | | [address];[place] | | | | | | [address] | | | | + + + + + -+ | RDW-CV | 43.8Comment: Testing | 37 - 53 fl | EXTERNAL | | | | performed at [facility];[address] | | LAB | | | | [address];[place] | | | | | | [address] | | | | + + + + + -+ | Platelet | 172Comment: Testing | 150 - 400 K/uL | EXTERNAL | | | Count | performed at [facility];[address] | | LAB | | | Plasma | [address];[place] | | | | | | [address] | | | | + + + + + -+ | MPV | 8.6Comment: Testing | fl | EXTERNAL | | | | performed at [facility];[address] | | LAB | | | | [address];[place] | | | | | | [address] | | | | + + + + + -+ | Differentia | AUTOMATEDComment: | | EXTERNAL | | | l Type | Testing performed at | | LAB | | | | [facility];[address];[place] [address] | | | | + + + + + -+ | % Segmented | 41.76Comment: Testing | % | EXTERNAL | | | | performed at [facility];[address] | | LAB | | | Neutrophils | [address];[place] | | | | | | [address] | | | | + + + + + -+ | % | 37.20Comment: Testing | % | EXTERNAL | | | Lymphocytes | performed at [facility];[address] | | LAB | | | | [address];[place] | | | | | | [address] | | | | + + + + + -+ | % Monocytes | 13.94Comment: Testing | % | EXTERNAL | | | | performed at [facility];[address] | | LAB | | | | [address];[place] | | | | | | [address] | | | | + + + + + -+ | % | 5.72Comment: Testing | % | EXTERNAL | | | Eosinophils | performed at [facility];[address] | | LAB | | | | [address];[place] [place] | | | | | | [phone] | | | | + + + + + -+ | % Basophils | 1.38Comment: Testing | % | EXTERNAL | | | | performed at [facility];[address] | | LAB | | | | [address];[place] | | | | | | [address] | | | | + + + + + -+ | Absolute | 3.78Comment: Testing | 1.90 - 7.40 | EXTERNAL | | | Segmented | performed at [facility];888 | K/uL | LAB | | | Neutrophils | [address];[place] | | | | | | [address] | | | | + + + + + -+ | Absolute | 3.36Comment: Testing | 1.00 - 3.90 | EXTERNAL | | | Lymphocytes | performed at [facility];888 | K/uL | LAB | | | | [address];[place] | | | | | | [address] | | | | + + + + + -+ | Absolute | 1.26 (H)Comment: Testing | 0.00 - 0.80 | EXTERNAL | | | Monocytes | performed at [facility];888 | K/uL | LAB | | | | [address];[place] | | | | | | [address] | | | | + + + + + -+ | Absolute | 0.52 (H)Comment: Testing | 0.00 - 0.50 | EXTERNAL | | | Eosinophils | performed at [facility];888 | K/uL | LAB | | | | [address];[place] | | | | | | [address] | | | | + + + + + -+ | Absolute | 0.13 (H)Comment: Testing | 0.00 - 0.10 | EXTERNAL | | | Basophils | performed at [facility];888 | K/uL | LAB | | | | [address];[place] | | | | | | [address] | | | | + + + + + -+ | Na | 141Comment: Testing | 135 - 145 | EXTERNAL | | | | performed at [facility];888 | mmol/L | LAB | | | | [address];[place] | | | | | | [address] | | | | + + + + + -+ | K | 3.9Comment: MODERATE | 3.5 - 4.9 | EXTERNAL | | | | HEMOLYSISTesting | mmol/L | LAB | | | | performed at [facility];[address] | | | | | | [address];[place] | | | | | | [address] | | | | + + + + + -+ | Cl | 104Comment: Testing | 99 - 109 mmol/L | EXTERNAL | | | | performed at [facility];[address] | | LAB | | | | [address];[place] | | | | | | [address] | | | | + + + + + -+ | CO2 | 30Comment: Testing | 23 - 32 mmol/L | EXTERNAL | | | | performed at [facility];[address] | | LAB | | | | [address];[place] | | | | | | [address] | | | | + + + + + -+ | Anion Gap | 11Comment: Testing | 5 - 20 mmol/L | EXTERNAL | | | | performed at [facility];[address] | | LAB | | | | [address];[place] | | | | | | [address] | | | | + + + + + -+ | Glucose, | 91Comment: Testing | 65 - 99 mg/dL | EXTERNAL | | | Fasting | performed at [facility];[address] | | LAB | | | | [address];[place] | | | | | | [address] | | | | + + + + + -+ | BUN | 14Comment: Testing | 8 - 25 mg/dL | EXTERNAL | | | | performed at [facility];[address] | | LAB | | | | [address];[place] | | | | | | [address] | | | | + + + + + -+ | Creatinine | 0.97Comment: Testing | 0.70 - 1.30 | EXTERNAL | | | | performed at [facility];888 | mg/dL | LAB | | | | [address];[place] | | | | | | [address] | | | | + + + + + -+ | BUN/Creatin | 14Comment: Testing | | EXTERNAL | | | ine Ratio | performed at [facility];[address] | | LAB | | | | [address];[place] | | | | | | [address] | | | | + + + + + -+ | Calcium | 8.5Comment: Testing | 8.5 - 10.5 | EXTERNAL | | | | performed at [facility];888 | mg/dL | LAB | | | | [address];[place] | | | | | | [address] | | | | + + + + + -+ | Protein, | 6.5Comment: Testing | 6.3 - 8.2 g/dL | EXTERNAL | | | Total | performed at [facility];[address] | | LAB | | | | [address];[place] | | | | | | [address] | | | | + + + + + -+ | Albumin | 3.3Comment: Testing | 3.3 - 4.8 g/dL | EXTERNAL | | | | performed at [facility];[address] | | LAB | | | | [address];[place] | | | | | | [address] | | | | + + + + + -+ | Globulin | 3.2Comment: Testing | 1.3 - 4.9 g/dL | EXTERNAL | | | | performed at [facility];[address] | | LAB | | | | [address];[place] | | | | | | [address] | | | | + + + + + -+ | A/G Ratio | 1.0Comment: Testing | 1.0 - 2.4 | EXTERNAL | | | | performed at [facility];[address] | | LAB | | | | [address];[place] | | | | | | [address] | | | | + + + + + -+ | Bilirubin | 0.6Comment: Testing | 0.1 - 1.5 mg/dL | EXTERNAL | | | Total | performed at [facility];[address] | | LAB | | | | [address];[place] | | | | | | [address] | | | | + + + + + -+ | ALP, | 102Comment: Testing | 35 - 115 U/L | EXTERNAL | | | External | performed at [facility];[address] | | LAB | | | | [address];[place] | | | | | | [address] | | | | + + + + + -+ | AST | 36Comment: MODERATE | 10 - 45 U/L | EXTERNAL | | | | HEMOLYSISTesting | | LAB | | | | performed at [facility];[address] | | | | | | [address];[place] | | | | | | [address] | | | | + + + + + -+ | ALT | 32Comment: Testing | 10 - 65 U/L | EXTERNAL | | | | performed at [facility];[address] | | LAB | | | | [address];[place] | | | | | | [address] | | | | + + + + + -+ | Estimated | >60Comment: GFR <60: | mL/min/1.73m2 | EXTERNAL | | | GFR | CHRONIC KIDNEY DISEASE, | | LAB | | | | IF FOUND OVER A 3 MONTH | | | | | | PERIOD.GFR <15: KIDNEY | | | | | | FAILURE.FOR | | | | | | AMERICANS, MULTIPLY THE | | | | | | CALCULATED GFR BY | | | | | | 1.210.Testing performed | | | | | | at [facility];[address] [facility] | | | | | | [address];[place] [address] | | | | + + + + + -+ | CK, Total | 188Comment: MODERATE | 55 - 400 U/L | EXTERNAL | | | | HEMOLYSISTesting | | LAB | | | | performed at [facility];[address] | | | | | | [address];[place] | | | | | | [address] | | | | + + + + + -+ | INR | 1.1Comment: REFERENCE | | EXTERNAL | | | | RANGE:0.9 - 1.2 | | LAB | | | | NON-ANTICOAGULATED2.0 | | | | | | - 3.0 ALL OTHER | | | | | | THERAPEUTIC | | | | | | INDICATIONS2.5 - 3.5 | | | | | | MECHANICAL HEART VALVES, | | | | | | RECURRENT OR SYSTEMIC | | | | | | EMBOLISMTesting | | | | | | performed at [facility];[address] | | | | | | [address];[place] | | | | | | [address] | | | | + + + + + -+ | aPTT, | 42 (H)Comment: Testing | 23 - 32 seconds | EXTERNAL | | | Patient | performed at [facility];[address] | | LAB | | | | [address];[place] | | | | | | [address] | | | | + + + + + -+ | CK-MB | 3.8 (H)Comment: Testing | 0.5 - 3.6 ng/mL | EXTERNAL | | | | performed at [facility];[address] | | LAB | | | | [address];[place] | | | | | | [address] | | | | + + + + + -+ | CK-MB Index | 2.0Comment: CK INDEX | | EXTERNAL | | | | INTERPRETATION: | | LAB | | | | MMB ng/mL | | | | | | | | | | | |CK INDEX INTERPRETATION: | | | | | | MMB ng/mL | | | | | | | | | | + + + + + -+ + + | Specimen | + + | | + + + +---------+ + + | Performing | Address | City/State/Zipcode | Phone Number | | Organization | | | | + +---------+ + + | EXTERNAL LAB | | | | + +---------+ + + Troponin I (07/06/2016 6:38 PM PDT) + + + + + + | Component | Value | Ref Range | Performed | Pathologist | | | | | At | Signature | + + + + + + | Troponin I, | 0.094Comment: 0.00 to | 0.00 - 0.10 | EXTERNAL | | | Qual | 0.10 CONSISTENT WITH | ng/mL | LAB | | | | NORMAL POPULATION0.11 to | | | | | | 0.60 CONSISTENT WITH | | | | | | INCREASED RISK FOR | | | | | | ADVERSE OUTCOMES> 0.60 | | | | | | CONSISTENT | | | | | | WITH WHO CRITERIA FOR | | | | | | ACUTE DC Testing | | | | | | performed at [facility];[address] | | | | | | [address] [facility];[place], [place] | | | | | | [address] | | | | + + + + + + + + | Specimen | + + | Blood specimen | | (specimen) | + + + +---------+ + + | Performing | Address | City/State/Zipcode | Phone Number | | Organization | | | | + +---------+ + + | EXTERNAL LAB | | | | + +---------+ + + XR Chest 1 Vw (07/06/2016 4:07 PM PDT) + + | Specimen | + + | | + + + + + | Narrative | Performed At | + + + | This is a non-reportable procedure without a radiologist report and | | | is used for image storage only | | + + + + + | Procedure Note | + + | Javier Paredes Ana - 12/01/2018 3:19 AM PDT This is a non-reportable procedure | | without a radiologist report and isused for image storage only | + + documented in this encounter Visit Diagnoses + + | Diagnosis | + + | Diagnosis unknown Other unknown and unspecified cause of morbidity or mortality | + + | Chest pain, unspecified type | + + | Essential hypertension Unspecified essential hypertension | + + | Sinus bradycardia Other specified cardiac dysrhythmias | + + documented in this encounter
--- OUTSIDE RECORDS SUMMARY | ~2019-11-27 | XMS | Encounter Summary ---
Demographics + + + | Address | [address] | | | [place] [address] | + + + | Home Phone | | + + + | Preferred Language | Unknown | + + + | Marital Status | | + + + | Synagogue Affiliation | Unknown | + + + | Race | Unknown | + + + | Ethnic Group | Unknown | + + + Author + + + | Author | [facility] | | | and [place] | + + + | Organization | [facility] | | | and [place] [...] Team Providers + +------+ + | Care Body Press Operator Name | Role | Phone | + +------+ + | Melecio Murillo MD | PCP | | + +------+ + Encounter Details +--------+ + + + + | Date | Type | Department | Care Team | Description | +--------+ + + + + | 05/08/ | Orders Only | [facility] | Hubert Rowan V, | | | 2018 | | CONVERSION [address] | MD [address] | | | | | [address] | [address] | | | | | [place], [place] | [address] | | | | | [address] | | | | | | [phone] | | | +--------+ + + + [...] + + documented as of this encounter Plan of Treatment Not on filedocumented as of this encounter Procedures + +--------+ + + + | Procedure Name | Priori | Date/Time | Associated Diagnosis | Comments | | | ty | | | | + +--------+ + + + | ECHO INTERPRETATION | Routin | 08/24/2018 | | Results for this | | OF OUTSIDE FILMS | e | 5:34 PM | | procedure are in the | | | | PDT | | results section. | + +--------+ + + + documented in this encounter Results ECHO Interpretation of Outside Films (08/24/2018 5:34 PM PDT) + + | Specimen | + + | | + + + + + | Impressions | Performed At | + + + | 1. This was a technically difficult study with suboptimal views. | | | Only limited information was obtained. 2. Grossly normal LV size and | | | systolic function. Unable to comment on regional wall motion. 3. The | | | right ventricle is normal in size and function. 4. No significant | | | valvular abnormalities are noted. | | + + + + + + | Narrative | Performed At | + + + | Patient Name: Anuj Salazar Date of : 1945 | | | Performing Physician: Phillip Arriaza | | | | | | INDICATIONS Atrial flutter, elevated troponin | | | CONCLUSIONS 1. This was a technically difficult study | | | with suboptimal views. Only limited information was obtained. 2. | | | Grossly normal LV size and systolic function. Unable to comment on | | | regional wall motion. 3. The right ventricle is normal in size and | | | function. 4. No significant valvular abnormalities are noted. | | | FINDINGS -------- ECG rhythm: Sinus rhythm. Study: A 2-dimensional | | | transthoracic echocardiogram with m-mode, spectral and color flow | | | Doppler was perfomed at [facility]. Study: This was a technically difficult | | | study with suboptimal views. Only limited, and poor quality, | | | parasternal views were presented. Apical views were also poor, but | | | subcostal views were adequate. Left Ventricle: Poor tissue doppler | | | signal prevents accurate assessment of diastolic function. Left | | | Ventricle: Grossly normal LV size and systolic function. Unable to | | | comment on regional wall motion. Right Ventricle: The right ventricle | | | is normal in size and function. Left Atrium: The left atrium was not | | | well visualized. Right Atrium: The right atrium was not well | | | visualized. Aortic Valve: The aortic valve appears to be trileaflet. | | | Aortic Valve: There is no evidence of aortic regurgitation. Aortic | | | Valve: There is no evidence of aortic stenosis. Aortic Valve: Aortic | | | valve is mildly thickened and calcified. 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 There is marked focal | | | thickening and calcification of the chordal attachments to the | | | anterior leaflet. Mitral Valve: There is trace mitral regurgitation. | | | Mitral Valve: No evidence of MVP. Mitral Valve: Mild mitral annular | | | calcification present. Tricuspid Valve: The tricuspid valve appears | | | structurally normal. Tricuspid Valve: Trace tricuspid regurgitation | | | present. Pulmonic Valve: The pulmonic valve is normal. Pericardium: | | | There is no pericardial effusion. IVC/Hepatic Veins: The IVC is | | | normal size (1.5-2.5cm) and collapses >50% with sniff, consistent with | | | central venous pressures of 5-10mmHg. Aorta: The aortic root is | | | normal in size; the a Aorta: scending aorta and arch not well seen. | | | Mass: No mass visualized Thrombus: No clot visualized Septum: No ASD | | | observed. Septum: No VSD observed. MEASUREMENTS | | | Ao asc: 2.75 cm Ao Diam: 2.59 cm Ao sinus: 2.[address] | | | junct: 2.17 cm IVC: 2.10 cm EDV(Teich): 65.57 ml IVSd: | | | 0.92 cm LVIDd: 3.89 cm LVPWd: 1.03 cm LVOT Diam: 1.95 cm | | | %FS: 32.94 % EF(Teich): 62.13 % ESV(Teich): 24.82 ml | | | LVIDs: 2.60 cm SV(Teich): 40.74 ml LVEF MOD A4C: 60.07 % | | | SV MOD A4C: 41.65 ml LVEDV MOD A4C: 69.34 ml LVLd A4C: 7.09 | | | cm LVESV MOD A4C: 27.68 ml LVLs A4C: 5.56 cm LAAs A4C: | | | 11.07 cm2 LAESV A-L A4C: 28.24 ml LAESV MOD A4C: 26.87 ml | | | LALs A4C: 3.68 cm RAAs: 12.95 cm2 RAESV A-L: 33.97 ml | | | RAESV MOD: 32.54 ml RALs: 4.19 cm TAPSE: 2.55 cm AV | | | Env.Ti: 293.90 ms AV maxP.83 mmHg AV meanP.75 mmHg | | | AV Vmax: 1.09 m/s AV Vmean: 0.78 m/s AV VTI: 23.18 cm BRAEDEN | | | Vmax: 2.74 cm2 BRAEDEN (VTI): 2.77 cm2 AVAI Vmax: 0.00 cm2/m2 | | | AVAI (VTI): 0.00 cm2/m2 LVOT Env.Ti: 299.44 ms LVOT maxPG: | | | 4.02 mmHg LVOT meanP.18 mmHg LVSI Dopp: 38.52 ml/m2 LVSV | | | Dopp: 64.33 ml LVOT Vmax: 1.00 m/s LVOT Vmean: 0.71 m/s | | | LVOT VTI: 21.36 cm MV A Boris: 0.68 m/s MV Dec Ada: 4.06 | | | m/s2 MV DecT: 176.10 ms MV E Boris: 0.71 m/s MV E/A Ratio: | | | 1.04 E/E' Sept: 11.54 E' Lat: 0.08 m/s E' Sept: 0.06 m/s | | | RV S': 0.18 m/s Biology Research Assistant: Authenticated by: Phillip Arriaza | | | Report Date/Time: 08-24-2018 19:33:20 | | + + + + + | Procedure Note | + + | Reggie, Rad Conversion - 12/08/2018 1:54 PM PDT Patient Name: Rafael Salazar of | | : 1945 Performing Physician: Phillip Pozo | | [place] INDICATIONS | | -Atrial flutter, elevated troponin CONCLUSIONS 1. This was a technically | | difficult study with suboptimal views. Only limited information was obtained.2. Grossly | | normal LV size and systolic function. Unable to comment on regional wall motion.3. The | | right ventricle is normal in size and function. 4. No significant valvular abnormalities | | are noted. FINDINGS--------ECG rhythm: Sinus rhythm.Study: A 2-dimensional | | transthoracic echocardiogram with m-mode, spectral and color flow Doppler was perfomed | | at [facility].Study: This was a technically difficult study with suboptimal views. Only | | limited, and poor quality, parasternal views were presented. Apical views were also | | poor, but subcostal views were adequate.Left Ventricle: Poor tissue doppler signal | | prevents accurate assessment of diastolic function.Left Ventricle: Grossly normal LV | | size and systolic function. Unable to comment on regional wall motion.Right Ventricle: | | The right ventricle is normal in size and function.Left Atrium: The left atrium was not | | well visualized.Right Atrium: The right atrium was not well visualized.Aortic Valve: The | | aortic valve appears to be trileaflet.Aortic Valve: There is no evidence of aortic | | regurgitation.Aortic Valve: There is no evidence of aortic stenosis.Aortic Valve: Aortic | | valve is mildly thickened and calcified.Mitral Valve: Mitral valve is thickened with | | nodular degeneration. There is marked focal thickening and calcification of the chordal | | attachments to the anterior leaflet.Mitral Valve: There is trace mitral | | regurgitation.Mitral Valve: No evidence of MVP.Mitral Valve: Mild mitral annular | | calcification present.Tricuspid Valve: The tricuspid valve appears structurally | | normal.Tricuspid Valve: Trace tricuspid regurgitation present.Pulmonic Valve: The | | pulmonic valve is normal.Pericardium: There is no pericardial effusion.IVC/Hepatic | | Veins: The IVC is normal size (1.5-2.5cm) and collapses >50% with sniff, consistent with | | central venous pressures of 5-10mmHg.Aorta: The aortic root is normal in size; the | | aAorta: scending aorta and arch not well seen.Mass: No mass visualizedThrombus: No clot | | visualizedSeptum: No ASD observed.Septum: No VSD observed. MEASUREMENTS Ao | | asc: 2.75 cmAo Diam: 2.59 cmAo sinus: 2.[address] junct: 2.17 cmIVC: 2.10 | | cmEDV(Teich): 65.57 mlIVSd: 0.92 cmLVIDd: 3.89 cmLVPWd: 1.03 cmLVOT Diam: 1.95 | | cm%FS: 32.94 %EF(Teich): 62.13 %ESV(Teich): 24.82 mlLVIDs: 2.60 cmSV(Teich): | | 40.74 mlLVEF MOD A4C: 60.07 %SV MOD A4C: 41.65 mlLVEDV MOD A4C: 69.34 mlLVLd A4C: | | 7.09 cmLVESV MOD A4C: 27.68 mlLVLs A4C: 5.56 cmLAAs A4C: 11.07 [id number] A-L A4C: | | 28.24 mlLAESV MOD A4C: 26.87 mlLALs A4C: 3.68 cmRAAs: 12.95 [id number] A-L: | | 33.97 mlRAESV MOD: 32.54 mlRALs: 4.19 cmTAPSE: 2.55 cmAV Env.Ti: 293.90 msAV | | maxP.83 mmHgAV meanP.75 mmHgAV Vmax: 1.09 m/Stone Vmean: 0.78 m/Stone VTI: | | 23.18 cmAVA Vmax: 2.74 cm2AVA (VTI): 2.77 [id number] Vmax: 0.00 cm2/m2AVAI (VTI): | | 0.00 cm2/m2LVOT Env.Ti: 299.44 msLVOT maxP.02 mmHgLVOT meanP.18 mmHgLVSI | | Dopp: 38.52 ml/m2LVSV Dopp: 64.33 mlLVOT Vmax: 1.00 m/sLVOT Vmean: 0.71 m/sLVOT | | VTI: 21.36 cmMV A Obris: 0.68 m/sMV Dec Ada: 4.06 m/s2MV DecT: 176.10 msMV E | | Boris: 0.71 m/sMV E/A Ratio: 1.04E/E' Sept: 11.54E' Lat: 0.08 m/sE' Sept: 0.06 | | m/sRV S': 0.18 m/s Biology Research Assistant:Authenticated by: Phillip Sarmiento Date/Time: | | 08-24-2018 19:33:20 IMPRESSION: 1. This was a technically difficult study with suboptimal | | views. Only limited information was obtained.2. Grossly normal LV size and systolic | | function. Unable to comment on regional wall motion.3. The right ventricle is normal in | | size and function. 4. No significant valvular abnormalities are noted. | | | |MEASUREMENTS | | | |Ao asc: 2.75 cm | |Ao Diam: 2.59 cm | |Ao sinus: 2.20 cm | |Ao st junct: 2.17 cm | |IVC: 2.10 cm | |EDV(Teich): 65.57 ml | |IVSd: 0.92 cm | |LVIDd: 3.89 cm | |LVPWd: 1.03 cm | |LVOT Diam: 1.95 cm | |%FS: 32.94 % | |EF(Teich): 62.13 % | |ESV(Teich): 24.82 ml | |LVIDs: 2.60 cm | |SV(Teich): 40.74 ml | |LVEF MOD A4C: 60.07 % | |SV MOD A4C: 41.65 ml | |LVEDV MOD A4C: 69.34 ml | |LVLd A4C: 7.09 cm | |LVESV MOD A4C: 27.68 ml | |LVLs A4C: 5.56 cm | |LAAs A4C: 11.07 cm2 | |LAESV A-L A4C: 28.24 ml | |LAESV MOD A4C: 26.87 ml | |LALs A4C: 3.68 cm | |RAAs: 12.95 cm2 | |RAESV A-L: 33.97 ml | |RAESV MOD: 32.54 ml | |RALs: 4.19 cm | |TAPSE: 2.55 cm | |AV Env.Ti: 293.90 ms | |AV maxP.83 mmHg | |AV meanP.75 mmHg | |AV Vmax: 1.09 m/s | |AV Vmean: 0.78 m/s | |AV VTI: 23.18 cm | |BRAEDEN Vmax: 2.74 cm2 | |BRAEDEN (VTI): 2.77 cm2 | |AVAI Vmax: 0.00 cm2/m2 | |AVAI (VTI): 0.00 cm2/m2 | |LVOT Env.Ti: 299.44 ms | |LVOT maxP.02 mmHg | |LVOT meanP.18 mmHg | |LVSI Dopp: 38.52 ml/m2 | |LVSV Dopp: 64.33 ml | |LVOT Vmax: 1.00 m/s | |LVOT Vmean: 0.71 m/s | |LVOT VTI: 21.36 cm | |MV A Boris: 0.68 m/s | |MV Dec Ada: 4.06 m/s2 | |MV DecT: 176.10 ms | |MV E Boris: 0.71 m/s | |MV E/A Ratio: 1.04 | |E/E' Sept: 11.54 | |E' Lat: 0.08 m/s | |E' Sept: 0.06 m/s | |RV S': 0.18 m/s | | | |Biology Research Assistant: | |Authenticated by: Phillip Arriaza | |Report Date/Time: 08-24-2018 19:33:20 | | | |IMPRESSION: | |1. This was a technically difficult study with suboptimal views. Only limited information w as obtained. | |2. Grossly normal LV size and systolic function. Unable to comment on regional wall motion. | |3. The right ventricle is normal in size and function. 4. No significant valvular abnormali ties are noted. | + + documented in this encounter Visit Diagnoses Not on filedocumented in this encounter"
[~2019-11-27 08:31] MED LIST: CEFPODOXIME PR200 MG PO; COLACE100 MG PO; ELIQUIS5 MG PO; FAMOTIDINE20 MG PO; HYDROCODON-ACE1 EA10 PO; LIPITOR40 MG PO; LITE COAT ASPI325 MG PO; MELATONIN5 M2 PO; METOPROLOL TART50 MG PO; MULTI-VITAMIN1 EAC1 PO; PREDNISONE20 MG PO; TRAZODONE HCL100 MG PO; ZESTRIL5 MG PO
[2019-11-27] MEDS ORDERED: FEOSOL325 MG PO (10:17)
== END 2019-11-27 10:34 | disposition home or self-care (01) ==
LOC: ED 08:31
DX: D50.9 Iron deficiency anemia, unspecified (principal); J44.9 Chronic obstructive pulmonary disease, unspecified; F17.220 Nicotine dependence, chewing tobacco, uncomplicated; Z88.5 Allergy status to narcotic agent; Z79.899 Other long term (current) drug therapy
CPT/HCPCS: 71045; 80053; 83690; 85025; 86850; 86900; 86901; 86920; 99285-25

== ENCOUNTER 2024-05-25 12:57 | Emergency (ER) | payer OTHER ==
[~2024-05-25] VITALS: Ht 175.3 cm; Wt 58.1 kg
[~2024-05-25 12:57] MED LIST changes: +FEOSOL325 MG PO
[2024-05-25 13:15] LABS: HEMATOCRIT 44.9 % (35.0-50.0); HEMOGLOBIN 15.2 g/dL (12.0-18.0); MCH 30.9 (27-36); MCHC 33.9 g/dl (30-36); MCV 91.1 fl (81-99); PLATELET COUNT 236 K/uL (140-440); RBC 4.93 M/ul (4.3-5.7); RDW 14.1 (10.5-15.0)
[2024-05-25 13:28] LABS: INR 1.21 (0.80-1.30); PROTIME 15.2 Sec (11.2-14.2)
[2024-05-25 13:33] LABS: ALBUMIN 3.2 g/dL (3.4-5.0); ALBUMIN/GLOBULIN RATIO 0.73 (1.1-2.4); ANION GAP 13.5 (7-21); BILIRUBIN, TOTAL 0.9 ng/dL (0.2-1.0); BUN/CREATININE RATIO 18.62 (6.0-28.6); CALCIUM 9.5 mg/dL (8.5-10.1); CREATININE, SERUM 1.45 mg/dL (0.70-1.30); POTASSIUM 3.5 mmol/L (3.5-5.1); PROTEIN, TOTAL 7.6 g/dL (6.4-8.2)
[2024-05-25 13:42] LABS: BANDS, MANUAL DIFF 1; LYMPHOCYTES, MANUAL DIFF 18; MONOCYTES, MANUAL DIFF 6; NEUTROPHILS, MANUAL DIFF 75
[2024-05-25] MEDS ORDERED: LISINOPRIL5 MG PO (14:00)
[2024-05-25] MEDS ORDERED: CLOPIDOGREL75 MG PO (14:00)
[2024-05-25 15:09] LABS: BILIRUBIN, URINE POSITIVE (negative); BLOOD/HGB, URINE NEGATIVE (Negative); KETONE, URINE TRACE (Negative); LEUK ESTERASE, URINE NEGATIVE (negative); NITRITE, URINE NEGATIVE (negative)
[2024-05-25 15:15] LABS: CRYSTALS, URINE NONE SEEN (0-1+); EPITHELIAL CELLS, URINE 0 /lpf (0-1+); RED BLOOD CELLS, URINE 0-1 /hpf (0-5); WHITE BLOOD CELLS, URINE 0-1 /HPF (0-5)
[2024-05-25 15:16] LABS: BACTERIA, URINE NONE SEEN /hpf (negative); CASTS, URINE NONE SEEN \\lpf; COLLECTION TYPE, URINE CLEAN CATCH; REFLEX CULTURE, URINE No (No)
[2024-05-25 16:50] VITALS: BP 138/73
--- NOTE | 2024-05-26 22:09 | EKG ---
[facility] [address] [place] [address] Signed Sinus rhythm with marked sinus arrhythmia Otherwise normal ECG When compared with ECG of 24-AUG-2018 07:51, premature ventricular complexes are no longer present Confirmed by Zack Griffith MD () on 05/26/2024 10:09:28 PM Electronically Signed By: ZACK GRIFFITH MD 05/26/24 2209 PATIENT NAME: JAKE ZURITA Electrocardiogram DATE OF : [birth year] PHYSICIAN: ZACK GRIFFITH MD REPORT #: [id number] REPORT IS CONFIDENTIAL AND NOT TO BE RELEASED WITHOUT AUTHORIZATION
== END 2024-05-25 16:51 | disposition home or self-care (01) ==
LOC: ED 12:57
PROVIDERS: Emergency Medicine
DX: Z04.3 Encounter for examination and observation following other accident (principal); J44.89 Other specified chronic obstructive pulmonary disease; F17.200 Nicotine dependence, unspecified, uncomplicated; Z88.5 Allergy status to narcotic agent; Z79.899 Other long term (current) drug therapy; Z79.01 Long term (current) use of anticoagulants; W19.XXXA Unspecified fall, initial encounter; Z91.81 History of falling
CPT/HCPCS: 36415; 51701; 70450; 71045; 72125; 73030; 73502; 80053; 81001; 82553; 85025; 85610; 93005; 93010; 99284-25